=== PATIENT | male | born 1935 | race Caucasian/White ===

== ENCOUNTER → 2016-09-25 | Outpatient (REF) | payer MEDICARE, OTHER ==
[~2016-09-25] MED LIST: /TAMS4CA; ACET65TA OR; ADVIL PO; AMBI5TAB; AMLO5TAB OR; ASPI81TA45; ASPI81TA45 OR; ASTELIN NASAL SPRAY; AVOD0.5C; BISA5TA; CADUET PO; COLA100C2; COLA100C2 OR; HYDR25TA6; HYDROCORTISONE0.5 %; LIPI10TA OR; LUMIGAN 0.03%; MAALSUS; NEUR100C; NEUR300C; PERC5TAB8; PERC5TAB8 OR; PERC7.5T8 OR; PRESERVISION EYE VIT PO; RANI150C; SKEL800T5; TERA10CA; TIMO0.5S; TIMOLOL; TIMOLOL 0.5% OU; TYLENOL PO; hydrochlorothiazide PO; metamucil; ocuvite; preservision
== END | disposition home or self-care (01) ==
LOC: M LAB REF 12:11
PROVIDERS: ATTEND Internal Medicine
DX: N18.4 Chronic kidney disease, stage 4 (severe) (principal)

== ENCOUNTER → 2016-12-22 | Outpatient (CLI) | payer MEDICARE, OTHER ==
--- NOTE | 2016-12-22 12:05 | REP ---
Clinical: Shortness of breath. Technique: PA and lateral. Comparison: 12/09/2015. Findings: Cardiomegaly and tortuous thoracic aorta noted. Chronic interstitial changes and fibrosis (right greater than left) again identified. Superimposed right lower lobe atelectasis/infiltrate cannot be excluded. No pneumothorax. Skeletal structures intact. Impression: Chronic fibrosis and interstitial changes. Cannot exclude subtle superimposed right lower lobe atelectasis/infiltrate. Signed by Reuben Dumas MD 12/22/2016 11:56 A
== END ==
LOC: M WUC 11:40
PROVIDERS: ATTEND Nurse Practitioner Family
DX: R06.02 Shortness of breath (principal); R05 Cough; J98.4 Other disorders of lung

== ENCOUNTER → 2017-02-05 | Outpatient (REF) | payer MEDICARE, OTHER ==
[2017-02-05 19:02] LABS: FOLATE 8.8 NG/ML
== END ==
LOC: M LAB REF 16:25
PROVIDERS: ATTEND Internal Medicine
DX: N18.4 Chronic kidney disease, stage 4 (severe) (principal); R53.83 Other fatigue; F03.90 Unspecified dementia, unspecified severity, without behavioral disturbance, psychotic disturbance, mood disturbance, and anxiety

== ENCOUNTER → 2017-08-16 | Outpatient (REF) | payer MEDICARE, BC ==
[2017-08-16 13:32] LABS: PTH INTACT 98.2 PG/ML (14.0-72.0)
== END ==
LOC: M LAB REF 12:16
DX: N18.4 Chronic kidney disease, stage 4 (severe) (principal)
CPT/HCPCS: 83970

== ENCOUNTER → 2017-09-28 | Outpatient (REF) | payer MEDICARE, BC ==
[2017-09-28 18:30] LABS: APPEARANCE, URINE CLEAR (CLEAR); BACTERIA, URINE AUTO NEGATIVE (NEGATIVE); BILIRUBIN, URINE AUTO NEGATIVE (NEGATIVE); BLOOD, URINE BLOOD NEGATIVE (NEGATIVE); COLOR, URINE YELLOW (YELLOW); GLUCOSE, URINE (UA) AUTO NEGATIVE (NEGATIVE); KETONE, URINE AUTO NEGATIVE (NEGATIVE); LEUKOCYTE ESTERASE, URINE AUTO NEGATIVE (NEGATIVE); MUCUS, URINE SMALL (NEGATIVE); NITRITE, URINE AUTO NEGATIVE (NEGATIVE); PROTEIN, URINE AUTO NEGATIVE (NEGATIVE); RBC, URINE AUTO 2 /HPF (0-3); SPECIFIC GRAVITY URINE AUTO 1.013 (1.002-1.035); SQUAMOUS EPITHELIAL CELL UR AU 0 /HPF (0-6); WBC, URINE AUTO 1 /HPF (0-3)
== END ==
LOC: M LAB REF 16:38
DX: Z01.812 Encounter for preprocedural laboratory examination (principal); N40.1 Benign prostatic hyperplasia with lower urinary tract symptoms; R39.12 Poor urinary stream
CPT/HCPCS: 81001

== ENCOUNTER 2017-10-13 08:04 | Emergency (ER) | payer MEDICARE, BC ==
[2017-10-13 08:52] LABS: BASO % 0.4 % (0.0-1.0); EOS # 0.2 10^3/uL (0.0-0.50); EOS % 2.8 % (0.0-3.0); HEMATOCRIT 41.7 % (42.0-52.0); HEMOGLOBIN 14.2 g/dl (14.0-18.0); IMMATURE GRANULOCYTE % 0.5 % (0-3.0); LYMPH # 0.7 10^3/uL (1.5-4.5); LYMPH % 9.1 % (24.0-44.0); MEAN CORPUSCULAR HEMOGLOBIN 34.8 pg (27.0-33.0); MEAN CORPUSCULAR HGB CONC 34.1 g/dl (32.0-36.5); MEAN CORPUSCULAR VOLUME 102.2 fl (80.0-96.0); MONO # 0.5 10^3/uL (0.0-0.8); MONO % 6.8 % (0.0-5.0); NEUTROPHILS # 6.3 10^3/uL (1.8-7.7); NEUTROPHILS % 80.4 % (36.0-66.0); PLATELET COUNT, AUTOMATED 141 10^3/uL (150-450); RED BLOOD COUNT 4.08 10^6/uL (4.30-6.10); RED CELL DISTRIBUTION WIDTH 13.2 % (11.5-14.5); WHITE BLOOD COUNT 7.8 10^3/uL (4.0-10.0)
[2017-10-13 09:13] LABS: ANION GAP 9 MEQ/L (8-16); BLOOD UREA NITROGEN 23 MG/DL (7-18); CARBON DIOXIDE LEVEL 24 MEQ/L (21-32); CHLORIDE LEVEL 110 MEQ/L (98-107); CREATININE FOR GFR 1.84 MG/DL (0.70-1.30); GLOMERULAR FILTRATION RATE 37.6 (>35); GLUCOSE, FASTING 114 MG/DL (70-100); SODIUM LEVEL 143 MEQ/L (136-145)
[2017-10-13 10:11] LABS: APPEARANCE, URINE MANUAL CLEAR (CLEAR); BILIRUBIN, URINE MANUAL NEGATIVE (NEGATIVE); BLOOD URINE MANUAL POSITIVE (NEGATIVE); COLOR, URINE MANUAL LT YELLOW (YELLOW); GLUCOSE, URINE (UA) MANUAL NEGATIVE (NEGATIVE); KETONE, URINE MANUAL NEGATIVE (NEGATIVE); LEUKOCYTE ESTERASE, URINE MAN POSITIVE (NEGATIVE); NITRITE, URINE MANUAL NEGATIVE (NEGATIVE); PH,URINE MAN 5.5 UNITS (5.0 - 7.0); PROTEIN, URINE MANUAL 3+ mg/dL (NEGATIVE); UROBILINOGEN, URINE MANUAL NORMAL (NORMAL)
[2017-10-13 10:19] LABS: BACTERIA, URINE SMALL AMOUNT; HYALINE CAST, URINE NONE SEEN /lpf (0-1); MICROSCOPIC EXAM PERFORMED; MUCUS, URINE SMALL AMOUNT (NEGATIVE); RENAL EPITHELIAL CELLS, URINE SMALL AMOUNT /hpf; SQUAMOUS EPITHELIAL CELL URINE SMALL AMOUNT /hpf (SMALL AMT)
[2017-10-13] MEDS: PERCOCET 5MG/325MG TAB PO (10:34)
[2017-10-13 11:10] LABS: MICROSCOPIC INDICATED? MAN YES (NO)
[2017-10-13] MEDS: PHENAZOPYRIDINE 100 MG TAB PO (11:15)
== END 2017-10-13 11:39 | disposition home or self-care (01) ==
LOC: M ED 08:04
DX: R30.0 Dysuria (principal); G89.18 Other acute postprocedural pain; I10 Essential (primary) hypertension; R06.09 Other forms of dyspnea; G47.30 Sleep apnea, unspecified; H40.9 Unspecified glaucoma; M48.00 Spinal stenosis, site unspecified; Z87.891 Personal history of nicotine dependence; Z88.0 Allergy status to penicillin; Z79.899 Other long term (current) drug therapy; Z79.82 Long term (current) use of aspirin
CPT/HCPCS: 80048

== ENCOUNTER 2017-10-15 10:27 | Inpatient (IN) | payer MEDICARE, BC ==
[2017-10-15] MEDS: LIDOCAINE 2% 5ML JELLY UROJET TOP (11:45)
[2017-10-15 12:05] LABS: BASO % 0.2 % (0.0-1.0); EOS # 0.1 10^3/uL (0.0-0.50); EOS % 1.1 % (0.0-3.0); HEMATOCRIT 40.6 % (42.0-52.0); HEMOGLOBIN 13.8 g/dl (14.0-18.0); IMMATURE GRANULOCYTE % 0.6 % (0-3.0); LYMPH # 0.8 10^3/uL (1.5-4.5); LYMPH % 6.1 % (24.0-44.0); MEAN CORPUSCULAR HEMOGLOBIN 34.8 pg (27.0-33.0); MEAN CORPUSCULAR VOLUME 102.5 fl (80.0-96.0); MONO # 1.2 10^3/uL (0.0-0.8); MONO % 8.9 % (0.0-5.0); NEUTROPHILS # 10.9 10^3/uL (1.8-7.7); NEUTROPHILS % 83.1 % (36.0-66.0); PLATELET COUNT, AUTOMATED 162 10^3/uL (150-450); RED BLOOD COUNT 3.96 10^6/uL (4.30-6.10); RED CELL DISTRIBUTION WIDTH 13.6 % (11.5-14.5); WHITE BLOOD COUNT 13.1 10^3/uL (4.0-10.0)
[2017-10-15 12:24] LABS: ANION GAP 9 MEQ/L (8-16); BLOOD UREA NITROGEN 42 MG/DL (7-18); CALCIUM LEVEL 9.9 MG/DL (8.8-10.2); CARBON DIOXIDE LEVEL 24 MEQ/L (21-32); CHLORIDE LEVEL 105 MEQ/L (98-107); CREATININE FOR GFR 3.85 MG/DL (0.70-1.30); GLUCOSE, FASTING 110 MG/DL (70-100); POTASSIUM SERUM 4.3 MEQ/L (3.5-5.1); SODIUM LEVEL 138 MEQ/L (136-145)
[2017-10-15 15:29] LABS: ANION GAP 8 MEQ/L (8-16); BLOOD UREA NITROGEN 43 MG/DL (7-18); CALCIUM LEVEL 9.4 MG/DL (8.8-10.2); CARBON DIOXIDE LEVEL 26 MEQ/L (21-32); CHLORIDE LEVEL 106 MEQ/L (98-107); CREATININE FOR GFR 3.67 MG/DL (0.70-1.30); GLOMERULAR FILTRATION RATE 16.9 (>35); GLUCOSE, FASTING 127 MG/DL (70-100); POTASSIUM SERUM 4.6 MEQ/L (3.5-5.1); SODIUM LEVEL 140 MEQ/L (136-145)
[2017-10-15] MEDS ORDERED: ONDANSETRON 4MG/2ML VIAL (J2405) IV (16:15)
[2017-10-15] MEDS: NS 1,000 ML IV (16:30)
[2017-10-15] MEDS ORDERED: AZELASTINE 137MCG NASAL SPY 30 ML (ASTELIN) (18:45)
[2017-10-15] MEDS ORDERED: BISACODYL 5 MG TAB PO (18:45)
[2017-10-15] MEDS ORDERED: ACETAMINOPHEN TAB 650MG DOSE (2X325MG) PO (18:45)
[2017-10-15] MEDS: OCUVITE 1 TAB PO (20:28)
[2017-10-15] MEDS: DONEPEZIL 5 MG TAB PO (20:28)
[2017-10-15] MEDS: VITAMIN D 1,000 INTERNATIONAL UNITS TABLET PO (20:28)
[2017-10-15] MEDS: FAMOTIDINE 20 MG TAB PO (20:28)
[2017-10-15] MEDS: ASPIRIN 81 MG ENTERIC TAB PO (20:28)
[2017-10-15] MEDS: MEMANTINE 5MG TABLET (NAMENDA) PO (20:28)
[2017-10-15] MEDS: LATANOPROST 0.005% OPHTH SOLN 2.5 ML OU (21:00)
[2017-10-15 21:53] LABS: OSMOLALITY URINE 234 MOSM/KG (500-800)
[2017-10-15 21:58] LABS: APPEARANCE, URINE CLEAR (CLEAR); BACTERIA, URINE AUTO 1+ (NEGATIVE); BILIRUBIN, URINE AUTO NEGATIVE (NEGATIVE); BLOOD, URINE BLOOD 2+ (NEGATIVE); COLOR, URINE AMBER (YELLOW); GLUCOSE, URINE (UA) AUTO NEGATIVE (NEGATIVE); KETONE, URINE AUTO NEGATIVE (NEGATIVE); LEUKOCYTE ESTERASE, URINE AUTO 1+ (NEGATIVE); NITRITE, URINE AUTO POSITIVE (NEGATIVE); PROTEIN, URINE AUTO 2+ mg/dL (NEGATIVE); RBC, URINE AUTO 16 /HPF (0-3); SPECIFIC GRAVITY URINE AUTO 1.006 (1.002-1.035); SQUAMOUS EPITHELIAL CELL UR AU 0 /HPF (0-6); WBC, URINE AUTO 8 /HPF (0-3)
[2017-10-15 22:03] LABS: SODIUM,RANDOM URINE 24 MEQ/L
[2017-10-16 05:49] LABS: BASO # 0.1 10^3/uL (0.0-0.2); BASO % 0.6 % (0.0-1.0); EOS # 0.5 10^3/uL (0.0-0.50); EOS % 6.1 % (0.0-3.0); HEMATOCRIT 37.4 % (42.0-52.0); HEMOGLOBIN 12.3 g/dl (14.0-18.0); IMMATURE GRANULOCYTE % 0.2 % (0-3.0); LYMPH # 1.2 10^3/uL (1.5-4.5); LYMPH % 14.1 % (24.0-44.0); MEAN CORPUSCULAR HEMOGLOBIN 34.6 pg (27.0-33.0); MEAN CORPUSCULAR HGB CONC 32.9 g/dl (32.0-36.5); MEAN CORPUSCULAR VOLUME 105.4 fl (80.0-96.0); MONO # 0.8 10^3/uL (0.0-0.8); MONO % 9.4 % (0.0-5.0); NEUTROPHILS # 5.7 10^3/uL (1.8-7.7); NEUTROPHILS % 69.6 % (36.0-66.0); PLATELET COUNT, AUTOMATED 124 10^3/uL (150-450); RED BLOOD COUNT 3.55 10^6/uL (4.30-6.10); RED CELL DISTRIBUTION WIDTH 13.5 % (11.5-14.5); WHITE BLOOD COUNT 8.2 10^3/uL (4.0-10.0)
[2017-10-16 06:07] LABS: ANION GAP 7 MEQ/L (8-16); BLOOD UREA NITROGEN 43 MG/DL (7-18); CALCIUM LEVEL 9.2 MG/DL (8.8-10.2); CARBON DIOXIDE LEVEL 27 MEQ/L (21-32); CHLORIDE LEVEL 108 MEQ/L (98-107); CREATININE FOR GFR 3.13 MG/DL (0.70-1.30); GLOMERULAR FILTRATION RATE 20.4 (>35); GLUCOSE, FASTING 90 MG/DL (70-100); MAGNESIUM LEVEL 2.4 MG/DL (1.8-2.4); POTASSIUM SERUM 4.2 MEQ/L (3.5-5.1); SODIUM LEVEL 142 MEQ/L (136-145)
[2017-10-16] MEDS: TIMOLOL MALEATE 0.5% OPHTH SOLN 5 ML OD (08:53)
[2017-10-16] MEDS: HEPARIN SOD (PORCINE) 5000 UNITS/ML VIAL SQ ×3 (08:53→20:51)
[2017-10-16] MEDS: DUTASTERIDE 0.5 MG CAP (AVODART) PO (08:54)
[2017-10-16] MEDS: OCUVITE 1 TAB PO ×2 (08:54→20:50)
[2017-10-16] MEDS: TAMSULOSIN 0.4 MG CAP PO (08:54)
[2017-10-16] MEDS ORDERED: ENOXAPARIN 30 MG/0.3 ML SYR (J1650) SC (09:00)
[2017-10-16] MEDS: VITAMIN D 1,000 INTERNATIONAL UNITS TABLET PO (20:50)
[2017-10-16] MEDS: DONEPEZIL 5 MG TAB PO (20:50)
[2017-10-16] MEDS: LATANOPROST 0.005% OPHTH SOLN 2.5 ML OU (20:50)
[2017-10-16] MEDS: FAMOTIDINE 20 MG TAB PO (20:50)
[2017-10-16] MEDS: MEMANTINE 5MG TABLET (NAMENDA) PO (20:50)
[2017-10-16] MEDS: ASPIRIN 81 MG ENTERIC TAB PO (20:50)
[2017-10-17 05:35] LABS: BASO % 0.6 % (0.0-1.0); EOS # 0.5 10^3/uL (0.0-0.50); HEMATOCRIT 35.6 % (42.0-52.0); HEMOGLOBIN 11.8 g/dl (14.0-18.0); IMMATURE GRANULOCYTE % 0.2 % (0-3.0); LYMPH # 1.2 10^3/uL (1.5-4.5); LYMPH % 18.3 % (24.0-44.0); MEAN CORPUSCULAR HEMOGLOBIN 34.7 pg (27.0-33.0); MEAN CORPUSCULAR HGB CONC 33.1 g/dl (32.0-36.5); MEAN CORPUSCULAR VOLUME 104.7 fl (80.0-96.0); MONO # 0.6 10^3/uL (0.0-0.8); MONO % 8.7 % (0.0-5.0); NEUTROPHILS # 4.1 10^3/uL (1.8-7.7); NEUTROPHILS % 64.2 % (36.0-66.0); PLATELET COUNT, AUTOMATED 122 10^3/uL (150-450); RED CELL DISTRIBUTION WIDTH 13.5 % (11.5-14.5); WHITE BLOOD COUNT 6.3 10^3/uL (4.0-10.0)
[2017-10-17] MEDS: HEPARIN SOD (PORCINE) 5000 UNITS/ML VIAL SQ ×3 (05:35→19:37)
[2017-10-17 05:58] LABS: ANION GAP 7 MEQ/L (8-16); BLOOD UREA NITROGEN 44 MG/DL (7-18); CALCIUM LEVEL 9.1 MG/DL (8.8-10.2); CARBON DIOXIDE LEVEL 24 MEQ/L (21-32); CHLORIDE LEVEL 109 MEQ/L (98-107); CREATININE FOR GFR 2.58 MG/DL (0.70-1.30); GLOMERULAR FILTRATION RATE 25.4 (>35); GLUCOSE, FASTING 85 MG/DL (70-100); MAGNESIUM LEVEL 2.2 MG/DL (1.8-2.4); SODIUM LEVEL 140 MEQ/L (136-145)
[2017-10-17] MEDS: TIMOLOL MALEATE 0.5% OPHTH SOLN 5 ML OD (08:32)
[2017-10-17] MEDS: OCUVITE 1 TAB PO ×2 (08:32→19:35)
[2017-10-17] MEDS: TAMSULOSIN 0.4 MG CAP PO (08:32)
[2017-10-17] MEDS: DUTASTERIDE 0.5 MG CAP (AVODART) PO (08:32)
[2017-10-17] MEDS: SENNA 8.6 MG TAB (SENOKOT) PO ×2 (11:53→19:36)
[2017-10-17] MEDS: FLEET ENEMA PR (13:31)
[2017-10-17] MEDS: ASPIRIN 81 MG ENTERIC TAB PO (19:35)
[2017-10-17] MEDS: FAMOTIDINE 20 MG TAB PO (19:36)
[2017-10-17] MEDS: MEMANTINE 5MG TABLET (NAMENDA) PO (19:36)
[2017-10-17] MEDS: DONEPEZIL 5 MG TAB PO (19:36)
[2017-10-17] MEDS: VITAMIN D 1,000 INTERNATIONAL UNITS TABLET PO (19:36)
[2017-10-17] MEDS: LATANOPROST 0.005% OPHTH SOLN 2.5 ML OU (19:36)
[2017-10-18] MEDS: HEPARIN SOD (PORCINE) 5000 UNITS/ML VIAL SQ (05:19)
[2017-10-18 06:46] LABS: BASO % 0.6 % (0.0-1.0); EOS # 0.5 10^3/uL (0.0-0.50); EOS % 7.6 % (0.0-3.0); HEMOGLOBIN 12.5 g/dl (14.0-18.0); IMMATURE GRANULOCYTE % 0.1 % (0-3.0); LYMPH # 1.1 10^3/uL (1.5-4.5); LYMPH % 16.9 % (24.0-44.0); MEAN CORPUSCULAR HEMOGLOBIN 34.5 pg (27.0-33.0); MEAN CORPUSCULAR HGB CONC 32.9 g/dl (32.0-36.5); MONO # 0.6 10^3/uL (0.0-0.8); MONO % 8.4 % (0.0-5.0); NEUTROPHILS # 4.4 10^3/uL (1.8-7.7); NEUTROPHILS % 66.4 % (36.0-66.0); PLATELET COUNT, AUTOMATED 148 10^3/uL (150-450); RED BLOOD COUNT 3.62 10^6/uL (4.30-6.10); RED CELL DISTRIBUTION WIDTH 13.3 % (11.5-14.5); WHITE BLOOD COUNT 6.7 10^3/uL (4.0-10.0)
[2017-10-18 07:12] LABS: ANION GAP 8 MEQ/L (8-16); BLOOD UREA NITROGEN 38 MG/DL (7-18); CALCIUM LEVEL 9.3 MG/DL (8.8-10.2); CARBON DIOXIDE LEVEL 26 MEQ/L (21-32); CHLORIDE LEVEL 108 MEQ/L (98-107); CREATININE FOR GFR 2.29 MG/DL (0.70-1.30); GLOMERULAR FILTRATION RATE 29.2 (>35); GLUCOSE, FASTING 83 MG/DL (70-100); MAGNESIUM LEVEL 2.3 MG/DL (1.8-2.4); SODIUM LEVEL 142 MEQ/L (136-145)
[2017-10-18] MEDS: SENNA 8.6 MG TAB (SENOKOT) PO (09:00)
[2017-10-18] MEDS: OCUVITE 1 TAB PO (09:45)
[2017-10-18] MEDS: DUTASTERIDE 0.5 MG CAP (AVODART) PO (09:45)
[2017-10-18] MEDS: TIMOLOL MALEATE 0.5% OPHTH SOLN 5 ML OD (09:46)
[2017-10-18] MEDS: TAMSULOSIN 0.4 MG CAP PO (09:46)
== END 2017-10-18 14:45 | disposition home or self-care (01) | DRG 699 ==
LOC: M ED 10:27 → M ED INP 16:08 → M MS5PR 17:41
DX: N99.89 Other postprocedural complications and disorders of genitourinary system (principal); N17.9 Acute kidney failure, unspecified; N18.3 Chronic kidney disease, stage 3 (moderate); R33.9 Retention of urine, unspecified; G89.18 Other acute postprocedural pain; I10 Essential (primary) hypertension; R06.09 Other forms of dyspnea; G47.30 Sleep apnea, unspecified; H40.9 Unspecified glaucoma; K59.00 Constipation, unspecified; Z66 Do not resuscitate; R31.9 Hematuria, unspecified; K21.9 Gastro-esophageal reflux disease without esophagitis; M48.00 Spinal stenosis, site unspecified; N40.1 Benign prostatic hyperplasia with lower urinary tract symptoms; E78.00 Pure hypercholesterolemia, unspecified; D72.829 Elevated white blood cell count, unspecified; H35.30 Unspecified macular degeneration; F03.90 Unspecified dementia, unspecified severity, without behavioral disturbance, psychotic disturbance, mood disturbance, and anxiety; D53.9 Nutritional anemia, unspecified; Z87.891 Personal history of nicotine dependence; Z88.0 Allergy status to penicillin; Z79.899 Other long term (current) drug therapy; Z79.82 Long term (current) use of aspirin; Z88.6 Allergy status to analgesic agent; Z88.8 Allergy status to other drugs, medicaments and biological substances; Z85.828 Personal history of other malignant neoplasm of skin; Y83.8 Other surgical procedures as the cause of abnormal reaction of the patient, or of later complication, without mention of misadventure at the time of the procedure

== ENCOUNTER 2017-11-03 19:48 | Emergency (ER) | payer MEDICARE, BC ==
[2017-11-03 21:46] LABS: APPEARANCE, URINE CLEAR (CLEAR); BACTERIA, URINE AUTO 1+ (NEGATIVE); BILIRUBIN, URINE AUTO NEGATIVE (NEGATIVE); BLOOD, URINE BLOOD 1+ (NEGATIVE); COLOR, URINE YELLOW (YELLOW); GLUCOSE, URINE (UA) AUTO NEGATIVE (NEGATIVE); KETONE, URINE AUTO NEGATIVE (NEGATIVE); LEUKOCYTE ESTERASE, URINE AUTO 3+ (NEGATIVE); NITRITE, URINE AUTO NEGATIVE (NEGATIVE); PROTEIN, URINE AUTO NEGATIVE (NEGATIVE); RBC, URINE AUTO 8 /HPF (0-3); SPECIFIC GRAVITY URINE AUTO 1.006 (1.002-1.035); SQUAMOUS EPITHELIAL CELL UR AU 0 /HPF (0-6); UROBILINOGEN, URINE AUTO 0.2 mg/dL (0.0-2.0); WBC, URINE AUTO 36 /HPF (0-3)
[2017-11-03] MEDS: CIPROFLOXACIN 500 MG TAB PO (22:11)
== END 2017-11-03 22:13 | disposition home or self-care (01) ==
LOC: M ED 19:48
DX: T83.098A Other mechanical complication of other urinary catheter, initial encounter (principal); N30.90 Cystitis, unspecified without hematuria; I10 Essential (primary) hypertension; F03.90 Unspecified dementia, unspecified severity, without behavioral disturbance, psychotic disturbance, mood disturbance, and anxiety; K21.9 Gastro-esophageal reflux disease without esophagitis; E78.9 Disorder of lipoprotein metabolism, unspecified; H40.9 Unspecified glaucoma; G47.33 Obstructive sleep apnea (adult) (pediatric); Z79.899 Other long term (current) drug therapy; Z79.82 Long term (current) use of aspirin; Z88.0 Allergy status to penicillin; Z88.8 Allergy status to other drugs, medicaments and biological substances
CPT/HCPCS: 81001

== ENCOUNTER → 2017-12-08 | Outpatient (REF) | payer MEDICARE, BC ==
[2017-12-08 13:22] LABS: PTH INTACT 154.9 PG/ML (18.5-88.0)
== END ==
LOC: M LAB REF 12:31
DX: F32.9 Major depressive disorder, single episode, unspecified (principal); E55.9 Vitamin D deficiency, unspecified; R31.29 Other microscopic hematuria
CPT/HCPCS: 83970

== ENCOUNTER 2018-01-04 09:02 | Day surgery (SDC) | payer MEDICARE, BC ==
[~2018-01-04 09:02] MED LIST changes: -/TAMS4CA; -ACET65TA OR; -ADVIL PO; -AMBI5TAB; -AMLO5TAB OR; -ASPI81TA45; -ASPI81TA45 OR; -ASTELIN NASAL SPRAY; -AVOD0.5C; -BISA5TA; -CADUET PO; -COLA100C2; -COLA100C2 OR; -HYDR25TA6; -HYDROCORTISONE0.5 %; -LIPI10TA OR; +LR 1,000 ML IV; -LUMIGAN 0.03%; -MAALSUS; -NEUR100C; -NEUR300C; -PERC5TAB8; -PERC5TAB8 OR; -PERC7.5T8 OR; -PRESERVISION EYE VIT PO; -RANI150C; -SKEL800T5; -TERA10CA; -TIMO0.5S; -TIMOLOL; -TIMOLOL 0.5% OU; -TYLENOL PO; -hydrochlorothiazide PO; -metamucil; -ocuvite; -preservision
[2018-01-04] MEDS ORDERED: fentaNYL 100 MCG/2 ML INJECTION (J3010) As Ordered ×2 (11:08→14:39)
[2018-01-04] MEDS ORDERED: ROCURONIUM BROMIDE 50 MG/5 ML VIAL As Ordered ×2 (11:08→13:26)
[2018-01-04] MEDS ORDERED: PROPOFOL 200 MG/20 ML VIAL As Ordered (11:08)
[2018-01-04] MEDS: LevoFLOXacin IV 500 MG in APPROPRIATE DILUENT 1 EA IV (11:58)
[2018-01-04] MEDS ORDERED: GLYCOPYRROLATE INJ 0.2 MG/ML 2 ML VIAL As Ordered (14:05)
[2018-01-04] MEDS ORDERED: NEOSTIGMINE 10 MG/10 ML VIAL (J2710) As Ordered (14:05)
[2018-01-04] MEDS ORDERED: ONDANSETRON 4MG/2ML VIAL (J2405) As Ordered (14:05)
[2018-01-04] MEDS: BUPIVACAINE/EPIN 0.5% 30 ML VIAL As Ordered (14:16)
[2018-01-04] MEDS ORDERED: METOCLOPRAMIDE INJ 10MG/2ML VIAL (J2765) IV (14:45)
[2018-01-04] MEDS ORDERED: PERCOCET 5MG/325MG TAB PO (14:45)
[2018-01-04] MEDS ORDERED: MORPHINE 4 MG/ML 1ML VIAL/SYRINGE (J2270) IV (14:45)
[2018-01-04] MEDS ORDERED: ONDANSETRON 4MG/2ML VIAL (J2405) IV ×2 (14:45)
[2018-01-04] MEDS ORDERED: fentaNYL 100 MCG/2 ML INJECTION (J3010) IV (14:45)
[2018-01-04] MEDS ORDERED: LR 1,000 ML IV ×2 (14:45)
[2018-01-04] MEDS: NORCO, ANEXSIA 5/325MG TABLET (HYDROcodone/ACETAMINOPHEN) PO (17:00)
== END 2018-01-04 19:00 | disposition home or self-care (01) ==
LOC: M SDC 09:02
DX: K40.90 Unilateral inguinal hernia, without obstruction or gangrene, not specified as recurrent (principal); G47.30 Sleep apnea, unspecified; Z79.82 Long term (current) use of aspirin; N40.0 Benign prostatic hyperplasia without lower urinary tract symptoms; Z87.891 Personal history of nicotine dependence; Z79.899 Other long term (current) drug therapy; Z88.8 Allergy status to other drugs, medicaments and biological substances
CPT/HCPCS: 49650

== ENCOUNTER 2018-03-10 21:31 | Inpatient (IN) | payer MEDICARE, BC ==
[2018-03-10 22:26] LABS: BASO % 0.3 % (0.0-1.0); EOS # 0.2 10^3/uL (0.0-0.50); EOS % 3.8 % (0.0-3.0); HEMATOCRIT 37.9 % (42.0-52.0); HEMOGLOBIN 12.8 g/dl (13.5-17.5); IMMATURE GRANULOCYTE % 0.2 % (0-3.0); LYMPH % 16.6 % (24.0-44.0); MEAN CORPUSCULAR HEMOGLOBIN 35.6 pg (27.0-33.0); MEAN CORPUSCULAR HGB CONC 33.8 g/dl (32.0-36.5); MEAN CORPUSCULAR VOLUME 105.3 fl (80.0-96.0); MONO # 0.6 10^3/uL (0.0-0.8); MONO % 10.2 % (0.0-5.0); NEUTROPHILS % 68.9 % (36.0-66.0); RED CELL DISTRIBUTION WIDTH 13.7 % (11.5-14.5); WHITE BLOOD COUNT 5.8 10^3/uL (4.0-10.0)
[2018-03-10 22:40] LABS: PLATELET COUNT, AUTOMATED 92 10^3/uL (150-450)
[2018-03-10 22:47] LABS: ACETAMINOPHEN LEVEL < 2.0 UG/ML (10.0-30.0); ALBUMIN 2.7 GM/DL (3.2-5.2); ALBUMIN/GLOBULIN RATIO 0.87 (1.00-1.93); ALKALINE PHOSPHATASE 68 U/L (45-117); ALT/SGPT 19 U/L (12-78); ANION GAP 9 MEQ/L (8-16); AST/SGOT 20 U/L (7-37); BILIRUBIN,DIRECT 0.3 MG/DL (0.0-0.2); BILIRUBIN,TOTAL 0.7 MG/DL (0.2-1.0); BLOOD UREA NITROGEN 43 MG/DL (7-18); CALCIUM LEVEL 8.4 MG/DL (8.8-10.2); CARBON DIOXIDE LEVEL 26 MEQ/L (21-32); CHLORIDE LEVEL 105 MEQ/L (98-107); CPK CREATINE PHOSPHOKINASE 49 U/L (39-308); CREATININE FOR GFR 2.17 MG/DL (0.70-1.30); GLUCOSE, FASTING 95 MG/DL (70-100); POTASSIUM SERUM 3.6 MEQ/L (3.5-5.1); SALICYLATE LEVEL < 1.7 MG/DL (5.0-30.0); SODIUM LEVEL 140 MEQ/L (136-145); TOTAL PROTEIN 5.8 GM/DL (6.4-8.2)
[2018-03-10 22:52] LABS: CK-MB VALUE MASS 4.6 NG/ML (<3.6); MB/CK RELATIVE INDEX 9.38 (< OR =4)
[2018-03-10 23:01] LABS: ETHYL ALCOHOL (ETHANOL) < 0.003 % (0.000-0.010); TROPONIN I 1.67 NG/ML (< 0.10)
[2018-03-11] MEDS ORDERED: BISACODYL 10 MG SUPP PR (00:45)
[2018-03-11] MEDS ORDERED: ONDANSETRON 4 MG TAB (S0181) PO (00:45)
[2018-03-11] MEDS ORDERED: ACETAMINOPHEN TAB 650MG DOSE (2X325MG) PO (00:45)
[2018-03-11 01:44] LABS: AMPHETAMINES LEVEL URINE NEGATIVE (NEGATIVE); BARBITURATES URINE NEGATIVE (NEGATIVE); BENZODIAZEPINES URINE NEGATIVE (NEGATIVE); CANNABINOIDS URINE NEGATIVE (NEGATIVE); COCAINE METABOLITE URINE NEGATIVE (NEGATIVE); METHADONE URINE NEGATIVE (NEGATIVE); OPIATES URINE NEGATIVE (NEGATIVE); PHENCYCLIDINE URINE NEGATIVE (NEGATIVE)
[2018-03-11 01:47] LABS: TROPONIN I 1.52 NG/ML (< 0.10)
[2018-03-11] MEDS: APIXABAN 2.5 MG TAB (ELIQUIS) PO ×3 (03:00→20:20)
[2018-03-11] MEDS: NS 1,000 ML IV (03:01)
[2018-03-11 06:10] LABS: ESTIMATED AVERAGE GLUCOSE 117 MG/DL (60-110); HEMOGLOBIN A1c 5.7 %
[2018-03-11 06:11] LABS: ALBUMIN 2.8 GM/DL (3.2-5.2); ALKALINE PHOSPHATASE 68 U/L (45-117); ALT/SGPT 18 U/L (12-78); ANION GAP 8 MEQ/L (8-16); AST/SGOT 20 U/L (7-37); BILIRUBIN,TOTAL 0.7 MG/DL (0.2-1.0); BLOOD UREA NITROGEN 43 MG/DL (7-18); CALCIUM LEVEL 9.2 MG/DL (8.8-10.2); CARBON DIOXIDE LEVEL 29 MEQ/L (21-32); CHLORIDE LEVEL 104 MEQ/L (98-107); CPK CREATINE PHOSPHOKINASE 45 U/L (39-308); CREATININE FOR GFR 2.18 MG/DL (0.70-1.30); GLOMERULAR FILTRATION RATE 30.8 (>35); GLUCOSE, FASTING 87 MG/DL (70-100); POTASSIUM SERUM 4.1 MEQ/L (3.5-5.1); SODIUM LEVEL 141 MEQ/L (136-145); TOTAL PROTEIN 5.9 GM/DL (6.4-8.2)
[2018-03-11 06:16] LABS: CK-MB VALUE MASS 5.9 NG/ML (<3.6); MB/CK RELATIVE INDEX 13.11 (< OR =4)
[2018-03-11 06:17] LABS: TROPONIN I 1.61 NG/ML (< 0.10)
[2018-03-11 10:52] LABS: APPEARANCE, URINE HAZY (CLEAR); BACTERIA, URINE AUTO NEGATIVE (NEGATIVE); BILIRUBIN, URINE AUTO NEGATIVE (NEGATIVE); BLOOD, URINE BLOOD 1+ (NEGATIVE); COLOR, URINE YELLOW (YELLOW); GLUCOSE, URINE (UA) AUTO NEGATIVE (NEGATIVE); KETONE, URINE AUTO NEGATIVE (NEGATIVE); LEUKOCYTE ESTERASE, URINE AUTO 3+ (NEGATIVE); MUCUS, URINE SMALL (NEGATIVE); NITRITE, URINE AUTO NEGATIVE (NEGATIVE); PROTEIN, URINE AUTO NEGATIVE (NEGATIVE); RBC, URINE AUTO 2 /HPF (0-3); SPECIFIC GRAVITY URINE AUTO 1.008 (1.002-1.035); SQUAMOUS EPITHELIAL CELL UR AU 0 /HPF (0-6); UROBILINOGEN, URINE AUTO 0.2 mg/dL (0.0-2.0); WBC, URINE AUTO 43 /HPF (0-3)
[2018-03-11] MEDS: DUTASTERIDE 0.5 MG CAP (AVODART) PO (12:44)
[2018-03-11] MEDS ORDERED: SLF 3 ML SYR IV (12:45)
[2018-03-11] MEDS: SLF 3 ML SYR IV ×2 (13:35→22:52)
[2018-03-11] MEDS: DONEPEZIL 5 MG TAB PO (20:20)
[2018-03-11] MEDS: ASPIRIN 81 MG ENTERIC TAB PO (20:20)
[2018-03-11] MEDS: FAMOTIDINE 20 MG TAB PO (20:20)
[2018-03-11] MEDS: VITAMIN D 1,000 INTERNATIONAL UNITS TABLET PO (20:20)
[2018-03-11] MEDS: TAMSULOSIN 0.4 MG CAP PO (20:20)
[2018-03-11 20:25] LABS: CK-MB VALUE MASS 5.6 NG/ML (<3.6); CPK CREATINE PHOSPHOKINASE 80 U/L (39-308); MAGNESIUM LEVEL 2.2 MG/DL (1.8-2.4); TROPONIN I 1.47 NG/ML (< 0.10)
[2018-03-12 05:38] LABS: HEMATOCRIT 37.9 % (42.0-52.0); HEMOGLOBIN 12.5 g/dl (13.5-17.5); MEAN CORPUSCULAR VOLUME 106.2 fl (80.0-96.0); RED BLOOD COUNT 3.57 10^6/uL (4.30-6.10); RED CELL DISTRIBUTION WIDTH 13.4 % (11.5-14.5); WHITE BLOOD COUNT 6.5 10^3/uL (4.0-10.0)
[2018-03-12 05:40] LABS: PLATELET COUNT, AUTOMATED 91 10^3/uL (150-450)
[2018-03-12 05:42] LABS: IMMATURE PLATELET FRACTION % 5.2 % (0.0-10.9)
[2018-03-12] MEDS: SLF 3 ML SYR IV ×3 (05:50→20:48)
[2018-03-12 06:04] LABS: ANION GAP 6 MEQ/L (8-16); BLOOD UREA NITROGEN 40 MG/DL (7-18); C REACTIVE PROTEIN QUANTITATIV 1.88 MG/DL (0.00-0.30); CALCIUM LEVEL 8.9 MG/DL (8.8-10.2); CARBON DIOXIDE LEVEL 29 MEQ/L (21-32); CHLORIDE LEVEL 104 MEQ/L (98-107); CREATININE FOR GFR 2.03 MG/DL (0.70-1.30); FERRITIN 121 NG/ML (26-388); GLOMERULAR FILTRATION RATE 33.5 (>35); GLUCOSE, FASTING 81 MG/DL (70-100); IRON (FE) 33 UG/DL (65-175); MAGNESIUM LEVEL 2.2 MG/DL (1.8-2.4); PERCENT SATURATION 15.1 % (19.7-50.0); PHOSPHORUS LEVEL 3.8 MG/DL (2.5-4.9); POTASSIUM SERUM 3.5 MEQ/L (3.5-5.1); SODIUM LEVEL 139 MEQ/L (136-145); TOTAL IRON BINDING CAPACITY 218 UG/DL (250-450)
[2018-03-12 06:39] LABS: TROPONIN I 1.27 NG/ML (< 0.10)
[2018-03-12] MEDS: POTASSIUM CHLORIDE 10 MEQ SR TABLET PO (10:48)
[2018-03-12] MEDS: SPIRONOLACTONE 25 MG TAB PO (10:48)
[2018-03-12] MEDS: APIXABAN 2.5 MG TAB (ELIQUIS) PO ×2 (10:49→20:48)
[2018-03-12] MEDS: DUTASTERIDE 0.5 MG CAP (AVODART) PO (10:49)
[2018-03-12] MEDS: DONEPEZIL 5 MG TAB PO (20:48)
[2018-03-12] MEDS: VITAMIN D 1,000 INTERNATIONAL UNITS TABLET PO (20:48)
[2018-03-12] MEDS: ASPIRIN 81 MG ENTERIC TAB PO (20:48)
[2018-03-12] MEDS: FAMOTIDINE 20 MG TAB PO (20:48)
[2018-03-12] MEDS: TAMSULOSIN 0.4 MG CAP PO (20:48)
[2018-03-13] MEDS: SLF 3 ML SYR IV ×3 (05:08→20:08)
[2018-03-13 05:10] LABS: HEMATOCRIT 36.1 % (42.0-52.0); MEAN CORPUSCULAR HEMOGLOBIN 34.6 pg (27.0-33.0); MEAN CORPUSCULAR HGB CONC 33.2 g/dl (32.0-36.5); PLATELET COUNT, AUTOMATED 106 10^3/uL (150-450); RED BLOOD COUNT 3.47 10^6/uL (4.30-6.10); RED CELL DISTRIBUTION WIDTH 13.4 % (11.5-14.5); WHITE BLOOD COUNT 6.2 10^3/uL (4.0-10.0)
[2018-03-13 05:34] LABS: ANION GAP 6 MEQ/L (8-16); BLOOD UREA NITROGEN 35 MG/DL (7-18); CALCIUM LEVEL 9.4 MG/DL (8.8-10.2); CARBON DIOXIDE LEVEL 29 MEQ/L (21-32); CHLORIDE LEVEL 107 MEQ/L (98-107); CREATININE FOR GFR 1.83 MG/DL (0.70-1.30); GLOMERULAR FILTRATION RATE 37.7 (>35); GLUCOSE, FASTING 98 MG/DL (70-100); POTASSIUM SERUM 4.7 MEQ/L (3.5-5.1); SODIUM LEVEL 142 MEQ/L (136-145)
[2018-03-13] MEDS: FLUTICASONE PROP 0.05% NASAL SPRAY 16 GM (FLONASE) NARES (09:46)
[2018-03-13] MEDS: DUTASTERIDE 0.5 MG CAP (AVODART) PO (09:46)
[2018-03-13] MEDS: APIXABAN 2.5 MG TAB (ELIQUIS) PO ×2 (09:46→20:07)
[2018-03-13] MEDS: TORSEMIDE 20 MG TAB PO (11:55)
[2018-03-13] MEDS: SPIRONOLACTONE 25 MG TAB PO (11:55)
[2018-03-13 14:18] LABS: TROPONIN I 1.43 NG/ML (< 0.10)
[2018-03-13] MEDS: VITAMIN D 1,000 INTERNATIONAL UNITS TABLET PO (20:07)
[2018-03-13] MEDS: TAMSULOSIN 0.4 MG CAP PO (20:07)
[2018-03-13] MEDS: DONEPEZIL 5 MG TAB PO (20:07)
[2018-03-13] MEDS: FAMOTIDINE 20 MG TAB PO (20:07)
[2018-03-13] MEDS: ASPIRIN 81 MG ENTERIC TAB PO (20:07)
[2018-03-14 05:27] LABS: HEMATOCRIT 36.6 % (42.0-52.0); HEMOGLOBIN 12.1 g/dl (13.5-17.5); MEAN CORPUSCULAR HEMOGLOBIN 35.2 pg (27.0-33.0); MEAN CORPUSCULAR HGB CONC 33.1 g/dl (32.0-36.5); MEAN CORPUSCULAR VOLUME 106.4 fl (80.0-96.0); PLATELET COUNT, AUTOMATED 115 10^3/uL (150-450); RED BLOOD COUNT 3.44 10^6/uL (4.30-6.10); RED CELL DISTRIBUTION WIDTH 13.6 % (11.5-14.5); WHITE BLOOD COUNT 6.1 10^3/uL (4.0-10.0)
[2018-03-14] MEDS: SLF 3 ML SYR IV ×3 (05:32→20:08)
[2018-03-14 05:44] LABS: ANION GAP 6 MEQ/L (8-16); BLOOD UREA NITROGEN 33 MG/DL (7-18); CALCIUM LEVEL 9.4 MG/DL (8.8-10.2); CARBON DIOXIDE LEVEL 30 MEQ/L (21-32); CHLORIDE LEVEL 106 MEQ/L (98-107); CREATININE FOR GFR 1.92 MG/DL (0.70-1.30); GLOMERULAR FILTRATION RATE 35.7 (>35); GLUCOSE, FASTING 91 MG/DL (70-100); POTASSIUM SERUM 4.1 MEQ/L (3.5-5.1); SODIUM LEVEL 142 MEQ/L (136-145)
[2018-03-14] MEDS: APIXABAN 2.5 MG TAB (ELIQUIS) PO ×2 (08:56→20:08)
[2018-03-14] MEDS: DUTASTERIDE 0.5 MG CAP (AVODART) PO (08:56)
[2018-03-14] MEDS: FLUTICASONE PROP 0.05% NASAL SPRAY 16 GM (FLONASE) NARES (08:56)
[2018-03-14] MEDS: SPIRONOLACTONE 25 MG TAB PO (08:56)
[2018-03-14] MEDS: TORSEMIDE 10 MG TABLET PO (08:56)
[2018-03-14 09:56] LABS: PTH INTACT 75.5 PG/ML (18.5-88.0)
[2018-03-14] MEDS: TAMSULOSIN 0.4 MG CAP PO (20:07)
[2018-03-14] MEDS: DONEPEZIL 5 MG TAB PO (20:07)
[2018-03-14] MEDS: ASPIRIN 81 MG ENTERIC TAB PO (20:07)
[2018-03-14] MEDS: VITAMIN D 1,000 INTERNATIONAL UNITS TABLET PO (20:07)
[2018-03-14] MEDS: CARVedilol 3.125 MG TAB PO (20:08)
[2018-03-14] MEDS: FAMOTIDINE 20 MG TAB PO (20:08)
[2018-03-15] MEDS: SLF 3 ML SYR IV (05:16)
[2018-03-15 05:32] LABS: HEMATOCRIT 39.8 % (42.0-52.0); HEMOGLOBIN 13.2 g/dl (13.5-17.5); MEAN CORPUSCULAR HEMOGLOBIN 35.4 pg (27.0-33.0); MEAN CORPUSCULAR HGB CONC 33.2 g/dl (32.0-36.5); MEAN CORPUSCULAR VOLUME 106.7 fl (80.0-96.0); PLATELET COUNT, AUTOMATED 140 10^3/uL (150-450); RED BLOOD COUNT 3.73 10^6/uL (4.30-6.10); RED CELL DISTRIBUTION WIDTH 13.7 % (11.5-14.5); WHITE BLOOD COUNT 6.5 10^3/uL (4.0-10.0)
[2018-03-15 05:50] LABS: ANION GAP 7 MEQ/L (8-16); BLOOD UREA NITROGEN 31 MG/DL (7-18); CALCIUM LEVEL 9.4 MG/DL (8.8-10.2); CARBON DIOXIDE LEVEL 29 MEQ/L (21-32); CHLORIDE LEVEL 106 MEQ/L (98-107); CREATININE FOR GFR 2.08 MG/DL (0.70-1.30); GLOMERULAR FILTRATION RATE 32.5 (>35); GLUCOSE, FASTING 92 MG/DL (70-100); POTASSIUM SERUM 4.8 MEQ/L (3.5-5.1); SODIUM LEVEL 142 MEQ/L (136-145)
[2018-03-15] MEDS: SPIRONOLACTONE 25 MG TAB PO (08:24)
[2018-03-15] MEDS: DUTASTERIDE 0.5 MG CAP (AVODART) PO (08:24)
[2018-03-15] MEDS: CARVedilol 3.125 MG TAB PO (08:24)
[2018-03-15] MEDS: APIXABAN 2.5 MG TAB (ELIQUIS) PO (08:24)
[2018-03-15] MEDS: TORSEMIDE 10 MG TABLET PO (08:25)
[2018-03-15] MEDS: FLUTICASONE PROP 0.05% NASAL SPRAY 16 GM (FLONASE) NARES (08:26)
== END 2018-03-15 13:14 | disposition home or self-care (01) | DRG 308 ==
LOC: M ED INP 03-11 00:33 → M PCU 03-11 02:30 → M ED 21:31
DX: I48.91 Unspecified atrial fibrillation (principal); I50.43 Acute on chronic combined systolic (congestive) and diastolic (congestive) heart failure; N17.9 Acute kidney failure, unspecified; I13.0 Hypertensive heart and chronic kidney disease with heart failure and stage 1 through stage 4 chronic kidney disease, or unspecified chronic kidney disease; N18.3 Chronic kidney disease, stage 3 (moderate); M54.9 Dorsalgia, unspecified; D63.1 Anemia in chronic kidney disease; H26.9 Unspecified cataract; I95.9 Hypotension, unspecified; N40.1 Benign prostatic hyperplasia with lower urinary tract symptoms; I42.2 Other hypertrophic cardiomyopathy; R33.9 Retention of urine, unspecified; F03.90 Unspecified dementia, unspecified severity, without behavioral disturbance, psychotic disturbance, mood disturbance, and anxiety; Z79.82 Long term (current) use of aspirin; Z79.899 Other long term (current) drug therapy; Z87.891 Personal history of nicotine dependence; Z88.0 Allergy status to penicillin; Z85.828 Personal history of other malignant neoplasm of skin; Z88.8 Allergy status to other drugs, medicaments and biological substances; Z88.6 Allergy status to analgesic agent; E87.6 Hypokalemia; R53.1 Weakness

== ENCOUNTER 2018-03-23 10:43 | Inpatient (IN) | payer MEDICARE, BC ==
[2018-03-23 12:15] LABS: BASO # 0.1 10^3/uL (0.0-0.2); BASO % 0.7 % (0.0-1.0); EOS # 0.2 10^3/uL (0.0-0.50); EOS % 3.3 % (0.0-3.0); HEMATOCRIT 40.6 % (42.0-52.0); HEMOGLOBIN 13.4 g/dl (13.5-17.5); IMMATURE GRANULOCYTE % 0.3 % (0-3.0); LYMPH # 0.9 10^3/uL (1.5-4.5); LYMPH % 12.8 % (24.0-44.0); MEAN CORPUSCULAR HEMOGLOBIN 35.7 pg (27.0-33.0); MEAN CORPUSCULAR VOLUME 108.3 fl (80.0-96.0); MONO # 0.5 10^3/uL (0.0-0.8); MONO % 6.8 % (0.0-5.0); NEUTROPHILS # 5.4 10^3/uL (1.8-7.7); NEUTROPHILS % 76.1 % (36.0-66.0); PLATELET COUNT, AUTOMATED 171 10^3/uL (150-450); RED BLOOD COUNT 3.75 10^6/uL (4.30-6.10); RED CELL DISTRIBUTION WIDTH 14.2 % (11.5-14.5)
[2018-03-23 12:16] LABS: VENOUS HCO3 25.6 MEQ/L (23.0-27.0); VENOUS O2 SATURATION 73.8 % (60.0-80.0); VENOUS PARTIAL PRESSURE CO2 50.1 mmHg (38.0-50.0); VENOUS PARTIAL PRESSURE O2 42.9 mmHg (30.0-50.0); VENOUS PH 7.326 UNITS (7.330-7.430); VENOUS STANDARD HCO3 23.1 MEQ/L; VENOUS TOTAL CO2 27.1 MEQ/L (24.0-28.0)
[2018-03-23 12:26] LABS: INR 1.27; PROTHROMBIN TIME 16.1 SECONDS (12.1-14.4)
[2018-03-23 12:40] LABS: ALBUMIN 3.1 GM/DL (3.2-5.2); ALBUMIN/GLOBULIN RATIO 1.11 (1.00-1.93); ALKALINE PHOSPHATASE 86 U/L (45-117); ALT/SGPT 30 U/L (12-78); ANION GAP 10 MEQ/L (8-16); AST/SGOT 20 U/L (7-37); BILIRUBIN,DIRECT 0.3 MG/DL (0.0-0.2); BLOOD UREA NITROGEN 33 MG/DL (7-18); CALCIUM LEVEL 9.3 MG/DL (8.8-10.2); CARBON DIOXIDE LEVEL 27 MEQ/L (21-32); CHLORIDE LEVEL 107 MEQ/L (98-107); CPK CREATINE PHOSPHOKINASE 57 U/L (39-308); CREATININE FOR GFR 2.21 MG/DL (0.70-1.30); GLOMERULAR FILTRATION RATE 30.3 (>35); GLUCOSE, FASTING 87 MG/DL (70-100); POTASSIUM SERUM 4.6 MEQ/L (3.5-5.1); SODIUM LEVEL 144 MEQ/L (136-145); TOTAL PROTEIN 5.9 GM/DL (6.4-8.2); TROPONIN I 1.01 NG/ML (< 0.10)
[2018-03-23 12:46] LABS: CK-MB VALUE MASS 4.8 NG/ML (<3.6); MB/CK RELATIVE INDEX 8.42 (< OR =4); NT-PRO BNP 18909 PG/ML (<450)
[2018-03-23] MEDS: FUROSEMIDE 100 MG/10 ML VIAL (J1940) IV ×2 (13:44→16:31)
[2018-03-23] MEDS ORDERED: SLF 3 ML SYR IV (17:45)
[2018-03-23] MEDS: VITAMIN D 1,000 INTERNATIONAL UNITS TABLET PO (20:25)
[2018-03-23] MEDS: DONEPEZIL 5 MG TAB PO (20:25)
[2018-03-23] MEDS: FUROSEMIDE injection 250 MG in D5W 225 ML IV (20:25)
[2018-03-23] MEDS: FAMOTIDINE 20 MG TAB PO (20:25)
[2018-03-23] MEDS: APIXABAN 2.5 MG TAB (ELIQUIS) PO (20:25)
[2018-03-23] MEDS: TAMSULOSIN 0.4 MG CAP PO (20:25)
[2018-03-23] MEDS: MULTIVITAMINS/MINERALS THERAP 1 TAB PO (20:25)
[2018-03-23] MEDS: CARVedilol 3.125 MG TAB PO (20:25)
[2018-03-23] MEDS: SLF 3 ML SYR IV (20:26)
[2018-03-24] MEDS: SLF 3 ML SYR IV ×3 (06:00→20:41)
[2018-03-24 06:30] LABS: HEMOGLOBIN 13.8 g/dl (13.5-17.5); MEAN CORPUSCULAR HEMOGLOBIN 35.1 pg (27.0-33.0); MEAN CORPUSCULAR HGB CONC 32.9 g/dl (32.0-36.5); MEAN CORPUSCULAR VOLUME 106.9 fl (80.0-96.0); PLATELET COUNT, AUTOMATED 165 10^3/uL (150-450); RED BLOOD COUNT 3.93 10^6/uL (4.30-6.10); RED CELL DISTRIBUTION WIDTH 13.9 % (11.5-14.5); WHITE BLOOD COUNT 6.9 10^3/uL (4.0-10.0)
[2018-03-24 06:48] LABS: ALBUMIN/GLOBULIN RATIO 0.91 (1.00-1.93); ALKALINE PHOSPHATASE 86 U/L (45-117); ALT/SGPT 25 U/L (12-78); ANION GAP 8 MEQ/L (8-16); AST/SGOT 13 U/L (7-37); BILIRUBIN,TOTAL 1.1 MG/DL (0.2-1.0); BLOOD UREA NITROGEN 33 MG/DL (7-18); CALCIUM LEVEL 9.8 MG/DL (8.8-10.2); CARBON DIOXIDE LEVEL 30 MEQ/L (21-32); CHLORIDE LEVEL 106 MEQ/L (98-107); CREATININE FOR GFR 2.32 MG/DL (0.70-1.30); GLOMERULAR FILTRATION RATE 28.7 (>35); GLUCOSE, FASTING 83 MG/DL (70-100); NT-PRO BNP 23767 PG/ML (<450); POTASSIUM SERUM 3.8 MEQ/L (3.5-5.1); SODIUM LEVEL 144 MEQ/L (136-145); TOTAL PROTEIN 6.3 GM/DL (6.4-8.2)
[2018-03-24] MEDS: SPIRONOLACTONE 25 MG TAB PO (09:30)
[2018-03-24] MEDS: FUROSEMIDE 40 MG/4 ML VIAL (J1940) IV ×2 (09:30→16:23)
[2018-03-24] MEDS: OCUVITE 1 TAB PO ×2 (09:30→20:40)
[2018-03-24] MEDS: APIXABAN 2.5 MG TAB (ELIQUIS) PO ×2 (09:30→20:40)
[2018-03-24] MEDS: DUTASTERIDE 0.5 MG CAP (AVODART) PO (09:30)
[2018-03-24] MEDS: TIMOLOL MALEATE 0.5% OPHTH SOLN 5 ML OD (09:31)
[2018-03-24 10:50] LABS: CK-MB VALUE MASS 4.4 NG/ML (<3.6); CPK CREATINE PHOSPHOKINASE 44 U/L (39-308)
[2018-03-24 15:02] LABS: C REACTIVE PROTEIN QUANTITATIV 0.32 MG/DL (0.00-0.30); CK-MB VALUE MASS 3.9 NG/ML (<3.6); CPK CREATINE PHOSPHOKINASE 44 U/L (39-308); MB/CK RELATIVE INDEX 8.86 (< OR =4); TROPONIN I 1.16 NG/ML (< 0.10)
[2018-03-24] MEDS: TAMSULOSIN 0.4 MG CAP PO (20:40)
[2018-03-24] MEDS: VITAMIN D 1,000 INTERNATIONAL UNITS TABLET PO (20:40)
[2018-03-24] MEDS: FAMOTIDINE 20 MG TAB PO (20:40)
[2018-03-24] MEDS: DONEPEZIL 5 MG TAB PO (20:41)
[2018-03-24] MEDS: ATORVASTATIN 20 MG TAB PO (20:41)
[2018-03-24 22:25] LABS: MAGNESIUM LEVEL 2.2 MG/DL (1.8-2.4)
[2018-03-25] MEDS: SLF 3 ML SYR IV ×3 (05:04→21:11)
[2018-03-25 05:39] LABS: HEMATOCRIT 39.7 % (42.0-52.0); HEMOGLOBIN 13.3 g/dl (13.5-17.5); MEAN CORPUSCULAR HGB CONC 33.5 g/dl (32.0-36.5); MEAN CORPUSCULAR VOLUME 104.5 fl (80.0-96.0); PLATELET COUNT, AUTOMATED 148 10^3/uL (150-450); RED CELL DISTRIBUTION WIDTH 13.9 % (11.5-14.5); WHITE BLOOD COUNT 6.9 10^3/uL (4.0-10.0)
[2018-03-25 06:01] LABS: ALBUMIN 2.7 GM/DL (3.2-5.2); ALBUMIN/GLOBULIN RATIO 0.87 (1.00-1.93); ALKALINE PHOSPHATASE 76 U/L (45-117); ALT/SGPT 23 U/L (12-78); ANION GAP 7 MEQ/L (8-16); AST/SGOT 14 U/L (7-37); BILIRUBIN,TOTAL 0.9 MG/DL (0.2-1.0); BLOOD UREA NITROGEN 36 MG/DL (7-18); CALCIUM LEVEL 9.3 MG/DL (8.8-10.2); CARBON DIOXIDE LEVEL 31 MEQ/L (21-32); CHLORIDE LEVEL 104 MEQ/L (98-107); CREATININE FOR GFR 2.38 MG/DL (0.70-1.30); GLOMERULAR FILTRATION RATE 27.9 (>35); GLUCOSE, FASTING 87 MG/DL (70-100); MAGNESIUM LEVEL 2.2 MG/DL (1.8-2.4); POTASSIUM SERUM 3.7 MEQ/L (3.5-5.1); SODIUM LEVEL 142 MEQ/L (136-145); TOTAL PROTEIN 5.8 GM/DL (6.4-8.2)
[2018-03-25] MEDS: FUROSEMIDE 40 MG/4 ML VIAL (J1940) IV ×3 (09:06→15:38)
[2018-03-25] MEDS: ASPIRIN 81 MG ENTERIC TAB PO (09:07)
[2018-03-25] MEDS: DUTASTERIDE 0.5 MG CAP (AVODART) PO (09:07)
[2018-03-25] MEDS: SPIRONOLACTONE 25 MG TAB PO (09:07)
[2018-03-25] MEDS: OCUVITE 1 TAB PO ×2 (09:07→21:09)
[2018-03-25] MEDS: TIMOLOL MALEATE 0.5% OPHTH SOLN 5 ML OD (09:07)
[2018-03-25] MEDS: APIXABAN 2.5 MG TAB (ELIQUIS) PO ×2 (09:07→21:09)
[2018-03-25] MEDS: CARBAMIDE PEROXIDE 6.5% OTIC SOLN 15ML AU ×2 (13:00→21:08)
[2018-03-25] MEDS: FAMOTIDINE 20 MG TAB PO (21:09)
[2018-03-25] MEDS: VITAMIN D 1,000 INTERNATIONAL UNITS TABLET PO (21:09)
[2018-03-25] MEDS: DONEPEZIL 5 MG TAB PO (21:09)
[2018-03-25] MEDS: ATORVASTATIN 20 MG TAB PO (21:09)
[2018-03-25] MEDS: TAMSULOSIN 0.4 MG CAP PO (21:09)
[2018-03-26] MEDS: FUROSEMIDE 40 MG/4 ML VIAL (J1940) IV ×2 (00:22→08:08)
[2018-03-26 05:34] LABS: HEMATOCRIT 44.5 % (42.0-52.0); HEMOGLOBIN 14.8 g/dl (13.5-17.5); MEAN CORPUSCULAR HEMOGLOBIN 34.6 pg (27.0-33.0); MEAN CORPUSCULAR HGB CONC 33.3 g/dl (32.0-36.5); PLATELET COUNT, AUTOMATED 173 10^3/uL (150-450); RED BLOOD COUNT 4.28 10^6/uL (4.30-6.10); RED CELL DISTRIBUTION WIDTH 13.7 % (11.5-14.5); WHITE BLOOD COUNT 7.7 10^3/uL (4.0-10.0)
[2018-03-26 05:54] LABS: ALBUMIN 3.1 GM/DL (3.2-5.2); ALBUMIN/GLOBULIN RATIO 0.94 (1.00-1.93); ALKALINE PHOSPHATASE 86 U/L (45-117); ALT/SGPT 23 U/L (12-78); ANION GAP 7 MEQ/L (8-16); AST/SGOT 22 U/L (7-37); BILIRUBIN,TOTAL 1.1 MG/DL (0.2-1.0); BLOOD UREA NITROGEN 36 MG/DL (7-18); CALCIUM LEVEL 9.4 MG/DL (8.8-10.2); CARBON DIOXIDE LEVEL 32 MEQ/L (21-32); CHLORIDE LEVEL 101 MEQ/L (98-107); CREATININE FOR GFR 2.28 MG/DL (0.70-1.30); GLOMERULAR FILTRATION RATE 29.3 (>35); GLUCOSE, FASTING 119 MG/DL (70-100); MAGNESIUM LEVEL 2.2 MG/DL (1.8-2.4); POTASSIUM SERUM 3.8 MEQ/L (3.5-5.1); SODIUM LEVEL 140 MEQ/L (136-145); TOTAL PROTEIN 6.4 GM/DL (6.4-8.2)
[2018-03-26] MEDS: SLF 3 ML SYR IV ×3 (06:49→20:39)
[2018-03-26] MEDS: DUTASTERIDE 0.5 MG CAP (AVODART) PO (08:08)
[2018-03-26] MEDS: OCUVITE 1 TAB PO ×2 (08:08→20:38)
[2018-03-26] MEDS: SPIRONOLACTONE 25 MG TAB PO (08:08)
[2018-03-26] MEDS: CARBAMIDE PEROXIDE 6.5% OTIC SOLN 15ML AU ×2 (08:09→20:40)
[2018-03-26] MEDS: APIXABAN 2.5 MG TAB (ELIQUIS) PO ×2 (08:09→20:38)
[2018-03-26] MEDS: ASPIRIN 81 MG ENTERIC TAB PO (08:09)
[2018-03-26] MEDS: TIMOLOL MALEATE 0.5% OPHTH SOLN 5 ML OD (08:09)
[2018-03-26] MEDS: CARVedilol 3.125 MG TAB PO (12:37)
[2018-03-26] MEDS: TORSEMIDE 20 MG TAB PO (17:09)
[2018-03-26] MEDS: FAMOTIDINE 20 MG TAB PO (20:38)
[2018-03-26] MEDS: TAMSULOSIN 0.4 MG CAP PO (20:38)
[2018-03-26] MEDS: VITAMIN D 1,000 INTERNATIONAL UNITS TABLET PO (20:38)
[2018-03-26] MEDS: ATORVASTATIN 20 MG TAB PO (20:39)
[2018-03-27] MEDS: SLF 3 ML SYR IV ×3 (06:00→21:09)
[2018-03-27 06:02] LABS: MEAN CORPUSCULAR HEMOGLOBIN 34.4 pg (27.0-33.0); MEAN CORPUSCULAR HGB CONC 33.3 g/dl (32.0-36.5); MEAN CORPUSCULAR VOLUME 103.2 fl (80.0-96.0); PLATELET COUNT, AUTOMATED 151 10^3/uL (150-450); RED BLOOD COUNT 4.07 10^6/uL (4.30-6.10); RED CELL DISTRIBUTION WIDTH 13.7 % (11.5-14.5); WHITE BLOOD COUNT 7.2 10^3/uL (4.0-10.0)
[2018-03-27 06:25] LABS: ALBUMIN 2.9 GM/DL (3.2-5.2); ALBUMIN/GLOBULIN RATIO 0.91 (1.00-1.93); ALKALINE PHOSPHATASE 83 U/L (45-117); ALT/SGPT 21 U/L (12-78); ANION GAP 7 MEQ/L (8-16); AST/SGOT 20 U/L (7-37); BILIRUBIN,TOTAL 0.9 MG/DL (0.2-1.0); BLOOD UREA NITROGEN 39 MG/DL (7-18); CALCIUM LEVEL 9.3 MG/DL (8.8-10.2); CARBON DIOXIDE LEVEL 33 MEQ/L (21-32); CHLORIDE LEVEL 102 MEQ/L (98-107); GLUCOSE, FASTING 88 MG/DL (70-100); MAGNESIUM LEVEL 2.5 MG/DL (1.8-2.4); SODIUM LEVEL 142 MEQ/L (136-145); TOTAL PROTEIN 6.1 GM/DL (6.4-8.2)
[2018-03-27] MEDS: APIXABAN 2.5 MG TAB (ELIQUIS) PO ×2 (07:55→21:09)
[2018-03-27] MEDS: DUTASTERIDE 0.5 MG CAP (AVODART) PO (07:55)
[2018-03-27] MEDS: ASPIRIN 81 MG ENTERIC TAB PO (07:55)
[2018-03-27] MEDS: OCUVITE 1 TAB PO ×2 (07:55→21:08)
[2018-03-27] MEDS: CARVedilol 3.125 MG TAB PO (07:56)
[2018-03-27] MEDS: CARBAMIDE PEROXIDE 6.5% OTIC SOLN 15ML AU ×2 (07:56→21:09)
[2018-03-27] MEDS: SPIRONOLACTONE 25 MG TAB PO (07:56)
[2018-03-27] MEDS: TIMOLOL MALEATE 0.5% OPHTH SOLN 5 ML OD (07:56)
[2018-03-27] MEDS: TORSEMIDE 20 MG TAB PO ×2 (07:56→16:16)
[2018-03-27] MEDS: VITAMIN D 1,000 INTERNATIONAL UNITS TABLET PO (21:08)
[2018-03-27] MEDS: MEMANTINE 5MG TABLET (NAMENDA) PO (21:09)
[2018-03-27] MEDS: FAMOTIDINE 20 MG TAB PO (21:09)
[2018-03-27] MEDS: TAMSULOSIN 0.4 MG CAP PO (21:09)
[2018-03-27] MEDS: ATORVASTATIN 20 MG TAB PO (21:09)
[2018-03-28 05:16] LABS: HEMATOCRIT 41.6 % (42.0-52.0); HEMOGLOBIN 13.7 g/dl (13.5-17.5); MEAN CORPUSCULAR HEMOGLOBIN 34.7 pg (27.0-33.0); MEAN CORPUSCULAR HGB CONC 32.9 g/dl (32.0-36.5); MEAN CORPUSCULAR VOLUME 105.3 fl (80.0-96.0); PLATELET COUNT, AUTOMATED 133 10^3/uL (150-450); RED BLOOD COUNT 3.95 10^6/uL (4.30-6.10); RED CELL DISTRIBUTION WIDTH 13.9 % (11.5-14.5); WHITE BLOOD COUNT 6.9 10^3/uL (4.0-10.0)
[2018-03-28 05:37] LABS: ALBUMIN/GLOBULIN RATIO 1.15 (1.00-1.93); ALKALINE PHOSPHATASE 80 U/L (45-117); ALT/SGPT 20 U/L (12-78); ANION GAP 10 MEQ/L (8-16); AST/SGOT 21 U/L (7-37); BILIRUBIN,TOTAL 1.2 MG/DL (0.2-1.0); BLOOD UREA NITROGEN 39 MG/DL (7-18); CALCIUM LEVEL 9.2 MG/DL (8.8-10.2); CARBON DIOXIDE LEVEL 30 MEQ/L (21-32); CHLORIDE LEVEL 103 MEQ/L (98-107); CREATININE FOR GFR 2.33 MG/DL (0.70-1.30); GLOMERULAR FILTRATION RATE 28.6 (>35); GLUCOSE, FASTING 80 MG/DL (70-100); MAGNESIUM LEVEL 2.3 MG/DL (1.8-2.4); SODIUM LEVEL 143 MEQ/L (136-145); TOTAL PROTEIN 5.6 GM/DL (6.4-8.2)
[2018-03-28] MEDS: SLF 3 ML SYR IV (06:00)
[2018-03-28] MEDS: ASPIRIN 81 MG ENTERIC TAB PO (09:18)
[2018-03-28] MEDS: OCUVITE 1 TAB PO (09:19)
[2018-03-28] MEDS: TORSEMIDE 20 MG TAB PO (09:19)
[2018-03-28] MEDS: CARVedilol 3.125 MG TAB PO (09:19)
[2018-03-28] MEDS: APIXABAN 2.5 MG TAB (ELIQUIS) PO (09:20)
[2018-03-28] MEDS: SPIRONOLACTONE 12.5MG PER 1/2 TABLET PO (09:20)
[2018-03-28] MEDS: DUTASTERIDE 0.5 MG CAP (AVODART) PO (09:21)
[2018-03-28] MEDS: TIMOLOL MALEATE 0.5% OPHTH SOLN 5 ML OD (09:22)
[2018-03-28] MEDS: CARBAMIDE PEROXIDE 6.5% OTIC SOLN 15ML AU (09:23)
== END 2018-03-28 12:20 | disposition home or self-care (01) | DRG 291 ==
LOC: M ED 10:43 → M ED INP 15:40 → M PCU 18:25
DX: I13.0 Hypertensive heart and chronic kidney disease with heart failure and stage 1 through stage 4 chronic kidney disease, or unspecified chronic kidney disease (principal); I50.43 Acute on chronic combined systolic (congestive) and diastolic (congestive) heart failure; N17.9 Acute kidney failure, unspecified; I48.1 Persistent atrial fibrillation; I47.2 Ventricular tachycardia; N18.4 Chronic kidney disease, stage 4 (severe); M54.9 Dorsalgia, unspecified; F03.90 Unspecified dementia, unspecified severity, without behavioral disturbance, psychotic disturbance, mood disturbance, and anxiety; D63.1 Anemia in chronic kidney disease; N40.1 Benign prostatic hyperplasia with lower urinary tract symptoms; I27.20 Pulmonary hypertension, unspecified; Z66 Do not resuscitate; H40.9 Unspecified glaucoma; G47.33 Obstructive sleep apnea (adult) (pediatric); H35.30 Unspecified macular degeneration; R33.9 Retention of urine, unspecified; Z85.828 Personal history of other malignant neoplasm of skin; Z79.01 Long term (current) use of anticoagulants; Z79.899 Other long term (current) drug therapy; Z88.0 Allergy status to penicillin; Z88.8 Allergy status to other drugs, medicaments and biological substances

== ENCOUNTER → 2018-03-30 | Outpatient (REF) | payer MEDICARE, BC ==
[2018-03-30 15:08] LABS: PTH INTACT 92.4 PG/ML (18.5-88.0)
== END ==
LOC: M LAB REF 14:16
DX: N18.4 Chronic kidney disease, stage 4 (severe) (principal)
CPT/HCPCS: 83970

== ENCOUNTER → 2018-06-06 | Outpatient (REF) | payer MEDICARE, BC ==
[2018-06-06 17:07] LABS: PTH INTACT 218.5 PG/ML (18.5-88.0)
== END ==
LOC: M LAB REF 16:41
DX: N18.4 Chronic kidney disease, stage 4 (severe) (principal)
CPT/HCPCS: 83970

== ENCOUNTER → 2018-09-05 | Outpatient (REF) | payer MEDICARE, BC ==
[~2018-09-05] MED LIST changes: +/TAMS4CA PO; +ACET65TA PO; +ADVIL PO; +ALDA25TA2 PO; +AMBI5TAB; +AMLO5TAB OR; +ASPI1TAB15 PO; +ASPI81TA45; +ASPI81TA45 OR; +ASPI81TAEC PO; +ASTELIN NASAL SPRAY; +ATOR1TAB21 PO; +AVOD0.5C PO; +AZEL0.055; +AZEL1SPR3; +BIMA01SOL OD; +BISA5TA; +CADUET PO; +CARV3.12 PO; +CIPR-249 PO; +COLA100C2; +COLA100C2 OR; +DEMA20TA6 PO; +DONE5TAB64 PO; +DONETAB5 PO; +ELIQ2.5T PO; +FLOM0.4C39 PO; +HYDR-3713 PO; +HYDR25TA6; +HYDROCORTISONE0.5 %; +K-TA10TA2 PO; +LIPI10TA OR; -LR 1,000 ML IV; +LUMIGAN 0.03%; +MAALSUS; +MEMA1TAB2 PO; +NEUR100C; +NEUR300C; +OCUVTAB4 PO; +PERC5TAB8; +PERC5TAB8 OR; +PERC7.5T8 OR; +POTA1TAB23 PO; +PRESCAP6 PO; +PRESERVISION EYE VIT PO; +PYRI1TAB5 PO; +RANI150C; +RANI150T PO; +SKEL800T5; +SPIR-10 PO; +TERA10CA; +TIMO0.5S; +TIMO0.5S29 OD; +TIMOLOL; +TIMOLOL 0.5% OU; +TORS10TA3 PO; +TORS20TA2 PO; +TYLENOL PO; +VITA200015 PO; +VITA20008 PO; +hydrochlorothiazide PO; +metamucil; +ocuvite; +preservision
[2018-09-05 18:49] LABS: FREE T4 1.01 NG/DL (0.76-1.46); THYROID STIMULATING HORMONE 2.12 uIU/ML (0.358-3.740)
== END ==
LOC: M LAB REF 18:07
PROVIDERS: ATTEND Internal Medicine Nephrology
DX: I48.2 Chronic atrial fibrillation (principal)

== ENCOUNTER 2018-09-12 11:06 | Inpatient (IN) | payer MEDICARE, BC ==
[~2018-09-12] VITALS: Ht 177.8 cm; Wt 75.9 kg
[2018-09-12 11:56] LABS: VENOUS BASE EXCESS 3.9 (-2.0-2.0); VENOUS HCO3 30.4 MEQ/L (23.0-27.0); VENOUS O2 SATURATION 74.9 % (60.0-80.0); VENOUS PARTIAL PRESSURE CO2 51.8 mmHg (38.0-50.0); VENOUS PARTIAL PRESSURE O2 43.5 mmHg (30.0-50.0); VENOUS PH 7.387 UNITS (7.330-7.430); VENOUS STANDARD HCO3 27.2 MEQ/L
[2018-09-12 11:57] LABS: BASO # 0.1 10^3/uL (0.0-0.2); BASO % 0.9 % (0.0-1.0); EOS # 0.3 10^3/uL (0.0-0.50); EOS % 3.7 % (0.0-3.0); HEMATOCRIT 49.9 % (42.0-52.0); HEMOGLOBIN 16.7 g/dl (13.5-17.5); LYMPH # 1.1 10^3/uL (1.5-4.5); LYMPH % 13.4 % (24.0-44.0); MEAN CORPUSCULAR HEMOGLOBIN 36.1 pg (27.0-33.0); MEAN CORPUSCULAR HGB CONC 33.5 g/dl (32.0-36.5); MONO # 0.8 10^3/uL (0.0-0.8); NEUTROPHILS # 5.8 10^3/uL (1.8-7.7); NEUTROPHILS % 71.8 % (36.0-66.0); PLATELET COUNT, AUTOMATED 146 10^3/uL (150-450); RED BLOOD COUNT 4.62 10^6/uL (4.30-6.10); WHITE BLOOD COUNT 8.1 10^3/uL (4.0-10.0)
[2018-09-12 12:08] LABS: INR 1.25; PROTHROMBIN TIME 15.9 SECONDS (12.1-14.4)
[2018-09-12 12:11] LABS: D-DIMER QUANT 850.25 ng/ml (<500)
--- NOTE | 2018-09-12 12:20 | REP ---
Chest two views HISTORY: Cough Comparison: 03/23/2018 An increase in interstitial markings is present in the lungs consistent with chronic interstitial change. Normal density is present in the lower lobes consistent with bibasilar atelectasis or infiltrates. There is blunting of the left costophrenic angle due to a small pleural effusion. The cardiac silhouette is enlarged. The pulmonary vasculature is normal in appearance. The bony structure is intact. IMPRESSION: 1. Bibasilar atelectasis or infiltrates. 2. Chronic interstitial change. 3. Small left pleural effusion. 4. Cardiomegaly. Electronically Signed by Shaun Marshall MD 09/12/2018 12:12 P
[2018-09-12 12:33] LABS: CALCIUM LEVEL 9.6 MG/DL (8.8-10.2); CREATININE FOR GFR 2.4 MG/DL (0.70-1.30); GLOMERULAR FILTRATION RATE 27.6 (>35); MB/CK RELATIVE INDEX 10.59 (< OR =4); TROPONIN I 1.94 NG/ML (< 0.10)
[2018-09-12] MEDS ORDERED: ATOR1TAB21 PO (13:45)
[2018-09-12] MEDS ORDERED: TORS20TA2 PO (13:45)
[2018-09-12] MEDS ORDERED: ASPI81TAEC PO (13:45)
[2018-09-12] MEDS ORDERED: CARV3.12 PO (13:45)
[2018-09-12] MEDS ORDERED: HEPARIN DRIP 25,000 UNITS in APPROPRIATE DILUENT 1 EA IV SCH ×2 (15:30→17:42)
[2018-09-12] MEDS ORDERED: HEPARIN SOD (PORCINE) 5000 UNITS/ML VIAL IV ONE (15:30)
[2018-09-12] MEDS ORDERED: HEPARIN SOD (PORCINE) 5000 UNITS/ML VIAL IV PRN (15:30)
[2018-09-12 16:26] LABS: HEMATOCRIT 49.6 % (42.0-52.0); HEMOGLOBIN 16.5 g/dl (13.5-17.5); MEAN CORPUSCULAR HEMOGLOBIN 35.6 pg (27.0-33.0); MEAN CORPUSCULAR HGB CONC 33.3 g/dl (32.0-36.5); MEAN CORPUSCULAR VOLUME 107.1 fl (80.0-96.0); PLATELET COUNT, AUTOMATED 131 10^3/uL (150-450); RED BLOOD COUNT 4.63 10^6/uL (4.30-6.10); WHITE BLOOD COUNT 7.4 10^3/uL (4.0-10.0)
[2018-09-12 17:13] VITALS: BP 122/80
--- NOTE | 2018-09-12 18:19 | HPE ---
DATE OF ADMISSION: 09/12/2018 An 82-year-old male with past medical history of chronic atrial fibrillation, on Eliquis, history of chronic systolic heart failure with ejection fraction of 35%, history of chronic kidney disease (CKD), stage V, hypertension who presents to the emergency room because of chronic shortness of breath and results of a chest x-ray that was done and ordered by Dr. Cartagena. Upon seeing the patient, the emergency room (ER) attending did a basic metabolic panel (BMP), complete blood count (CBC) and troponin, and the patient was found to have a troponin of 1.9 and the 12-lead EKG showed new EKG change with T wave inversions in precordial leads II and III. Dr. Murillo was consulted and it was decided that we are going to treat him for xvi-[id number] myocardial infarction (NSTEMI) but we are going to start IV heparin when his second dose of Eliquis is due. He will be admitted for further management. He denies any chest pain. His shortness of breath again is chronic not acute. He denies any palpitations, diaphoresis, or subjective feeling of fever, aches or chills. PAST MEDICAL HISTORY: 1. Chronic systolic heart failure, ejection fraction of 35%. 2. Chronic atrial fibrillation, on Eliquis. 3. History of hypertension. 4. Chronic kidney disease (CKD), stage V. 5. Chronic back pain. 6. Hyperlipidemia. 7. Dementia. ALLERGIES: He had drug allergies to PENICILLIN and PENICILLIN CROSS REACTORS. FAMILY HISTORY: Negative for early coronary artery disease. SOCIAL HISTORY: The patient denies tobacco, alcohol or illicit drugs. MEDICATIONS: He takes at home are as follows: - apixaban 2.5 mg orally twice daily - aspirin 81 mg orally daily - atorvastatin 20 mg orally at bedtime - azelastine two sprays intranasal twice a day as needed - bimatoprost one drop to the right eye at bedtime - Coreg 3.125 mg orally at bedtime - cholecalciferol 2000 units orally at bedtime - dutasteride 0.5 mg orally daily - memantine 10 mg orally at bedtime - multivitamin one tablet orally twice daily - potassium chloride 10 mEq orally three times a day - ranitidine one tablet orally at bedtime - timolol one drop to the right eye daily - torsemide 20 mg orally twice daily REVIEW OF SYSTEMS: Negative for all 10 major systems except which is mentioned in the history of present illness (HPI). VITAL SIGNS: Blood pressure is 115/84, heart rate is 79 and regular, respiratory rate is 16, temperature is 97.2, oxygen saturation is 98% on two liters nasal cannula. HEAD: Normocephalic, atraumatic. NECK: Supple with no jugular venous distention (JVD). LUNGS: Clear to auscultation. S1, S2 audible. No murmurs appreciated. ABDOMEN: Soft. Positive bowel sounds. No pedal edema. SKIN: Intact. NEUROLOGIC: The patient is awake, alert, and oriented times three. LABORATORY DATA: Sodium 144, potassium 4.0, chloride 104, CO2 30, BUN 49, creatinine 2.4, lactic acid is 1.8, glucose 74, troponin is 1.94 first set. WBC is 8.1, hemoglobin is 16.7, hematocrit 49.9, platelets are 146,000. VBG: PH is 7.387. Chest x-ray shows bibasilar atelectasis and chronic interstitial changes with cardiomegaly. IMPRESSION: Log-JK-avhmfmusl myocardial infarction (IA). PLAN: The patient is to be admitted to the intensive care unit (ICU). The patient is already on Coreg so he has a beta katlyn. We are going to start the patient on IV heparin maintenance dose only by kg body weight as per Dr. Murillo. Dr. Murillo has been placed on official consult. We will continue all of his preadmission medication, order an echocardiogram in the morning, and we will follow serial troponins to see their trends. We will continue following his care in the ICU. TOTAL CRITICAL CARE TIME: 35 minutes.
--- NOTE | 2018-09-12 19:28 | CR ---
DATE OF CONSULTATION: 09/12/2018 INDICATION: Elevated troponin, atrial fibrillation. HISTORY OF PRESENT ILLNESS: Mr. Sam is an 82-year-old man who came to the hospital emergency room earlier today. Apparently he was told by his summer associate last week that he has left pleural effusion. He was sent for blood work and a chest x-ray, but when he did not hear back, he actually ended up coming to emergency room. When I asked him why he came, he says that he just has not been feeling well in the way of feeling tired and having low energy. Apparently this has been going on for quite some time. He adamantly denies any chest discomfort. He denies any sensation of palpitations, dizziness, near/syncope. On presentation to the emergency room, electrocardiogram revealed presence of atrial fibrillation with ventricular rate 77 beats per minute. He has right bundle branch block, evidence for old inferior wall myocardial infarction, and nonspecific repolarization abnormality in virtually all leads but most prominently V1 to V3. His troponin was elevated at 1.94 with total CK 102 and CK-MB 11. Subsequent troponin at 1615 hours was for even slightly higher at 2.03. The patient continues to deny any symptoms currently. When I am seeing the patient in intensive care unit (ICU) bed, he is comfortable talking, tells me that besides feeling tired, he has no other symptoms. PAST MEDICAL HISTORY: 1. Chronic atrial fibrillation diagnosed in 2018, chronically anticoagulated with renally adjusted dose of Eliquis and he is also on tiny dose of Coreg. 2. Chronic renal insufficiency, stage IV. 3. History of BPH. 4. Glaucoma. 5. Dyslipidemia. 6. Hypertension. 7. Congestive heart failure. He had an echocardiogram during his hospitalization in March 2018 that revealed left ventricle ejection fraction approximately 35%. 8. Dementia. SURGICAL HISTORY: 1. Right lung decortication. 2. Bilateral cataract surgery. 3. Rotator cuff repair. 4. Appendectomy. 5. Back surgery. 6. Rezum procedure for BPH. SOCIAL HISTORY: The patient is , lives with his . Quit smoking about 40-50 years ago. No significant alcohol use. Currently DO NOT INTUBATE/DO NOT RESUSCITATE (DNI/DNR). FAMILY HISTORY: Mother of breast cancer in advanced age and father had also some form of cancer and in his 80s. OUTPATIENT MEDICATIONS: Aspirin 81 mg a day, Lipitor 20 mg a day, Avodart 0.5 mg a day, Coreg 3.125 mg at bedtime, Eliquis 2.5 mg twice a day, memantine 10 mg a day, potassium 10 mEq once a day, ranitidine 150 mg at night, tamsulosin 0.4 mg a day, Timolol eye drops, torsemide 20 mg twice a day and vitamin D3. He reports intolerance or allergies to GUAIFENESIN and PENICILLIN. REVIEW OF SYSTEMS: The patient denies any chest pain recently. He denies any nausea, vomiting, diarrhea. He denies any bleeding problems. He denies headache. He also denies any palpitations, syncope, paroxysmal nocturnal dyspnea (PND), or orthopnea. He does report that he has occasional peripheral edema but typically not very prominent. He does bitterly complain about feeling tired, exhausted and having low energy and having exertional dyspnea. PHYSICAL EXAMINATION: Mr. Sam is an elderly man who is currently in ICU bed, comfortable, in semiupright, easily conversing with me, in no distress. Blood pressure 122/80, heart rate has been mostly in 70s and 80s, is atrial fibrillation with wide QRS complex, not much ventricle ectopy, certainly no VT. Saturation is 98% on 2 liters of oxygen by nasal cannula and he is afebrile. Weight is documented at 74-1/2 kg. He is alert and oriented times three. His jugular venous pressure (JVP) is not elevated. Lungs sound reasonably clear to auscultation on the right. I do not appreciate any wheezing, crackles or rhonchi. They are somewhat diminished in the base on the left but not very much; again, no wheezing, rhonchi, or crackles are apparent. Heart: Exam reveals irregularly irregular rhythm. There is a murmur heard throughout precordium but best at the apex, not very loud, fairly faint. I do not appreciate a rub or gallop. Abdomen is soft. No tenderness. No hepatosplenomegaly. Extremities: About 1+ edema. Peripheral pulses are palpable but not of good quality. Neurologically, he is alert and oriented times three, but simultaneously he provides fairly limited history and it is apparent that he has memory problems. But speech is intact and for casual conversation, he can carry it without difficulty. LABORATORY: CBC: Hemoglobin 16.5, hematocrit 49, platelet count 131,000. Basic metabolic panel: Sodium 144, potassium 4.0, creatinine 2.4 for GFR 28 and glucose 74, lactic acid was 1.8. Cardiac enzymes as per history of the present illness. Blood gas was obtained and reveals pH 7.4 with pCO2 52 and pO2 43, it is clearly venous. Chest x-ray reveals prominent cardiomegaly. I am not convinced about pleural effusion; if anything, it is very small. No convincing congestive heart failure. ECG as per history of present illness. ASSESSMENT/PLAN: Mr. Sam is an 82-year-old man who has, at this point, chronic atrial fibrillation which seems to be reasonably well rate controlled on trivial dose of carvedilol. He does have very abnormal QRS complex suggestive of old inferior wall myocardial infarction ([place]), and simultaneously has right bundle branch block. There are also very prominent diffuse repolarization abnormalities. He has elevated troponin so far without any appreciable trend. He is known to have severe left ventricular systolic dysfunction based on his presentation in 2018. At this point, the principal decision is how to pursue further evaluation for his ischemic heart disease. Since his prior hospitalizations, no further cardiac testing was obtained. When I saw him then, it was my impression that he is not a candidate for any invasive measures. I have to say that his mental status seems to be quite a bit better compared to his situation last year. When I ask him whether he would pursue any further evaluation, including possibility of open heart surgery, he said that he would even though I am not convinced that he is realizing what it actually implies. 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 I will attempt to contact her again tomorrow. For the time being, I would continue current management with aspirin and will transition his Eliquis to heparin. But he does not have any clear-cut congestive heart failure, and I think his volume status is essentially euvolemic, so I do not believe that we need to make any further attempts for diuresing him. I am afraid that if he should pursue further cardiac evaluation, he should have a coronary angiogram which certainly would be very high risk procedure, and I suspect that it potentially could be followed by open heart surgery and defibrillator placement, which is a proposition that to me is difficult to imagine as benefiting the patient. But, nevertheless, I will have to address it with family again tomorrow. Otherwise, as far as additional supportive management is concerned, his blood pressure is well controlled, his heart rate is also well controlled. He is on aspirin, statin and very low dose of beta katlyn, and there is a history of bradycardia so I do not believe that should be advanced further. MISHA
--- NOTE | 2018-09-12 19:52 | ECGEPIP ---
Stationary ECG Study [facility] - ED Test Date: 2018-09-12 Pat Name: TABBY HOWELL Department: Room: - Gender: M Painter Helper Spray: ALVAREZ : 1935 Requested By: Clementina Mccollum Order Number: [id number] Reading MD: Clementina Mccollum Measurements Intervals [place] Rate: 77 P: NE: 0 QRS: 253 QRSD: 165 T: -1 QT: 455 QTc: 515 Interpretive Statements ATRIAL FIBRILLATION MARKED RIGHT AXIS DEVIATION RIGHT BUNDLE BRANCH BLOCK PROBABLE SEPTAL MYOCARDIAL INFARCTION, OF INDETERMINATE AGE INFERIOR MYOCARDIAL INFARCTION, OF INDETERMINATE AGE CW /15/18 - RATE INCREASED NEW ST/T WAVE CHANGES v2-3 - RULE OUT ISHCEMIA CLINICAL CORRELATION ADVISED Electronically Signed On 09-12-2018 19:52:13 EST by Clementina Mccollum
[2018-09-12 20:00] VITALS: BP 103/57
[2018-09-12] MEDS ORDERED: CARVedilol 3.125 MG TAB PO SCH (21:00)
[2018-09-12] MEDS ORDERED: VITAMIN D 1,000 INTERNATIONAL UNITS TABLET PO SCH (21:00)
[2018-09-12] MEDS ORDERED: MEMANTINE 5MG TABLET (NAMENDA) PO SCH (21:00)
[2018-09-12] MEDS ORDERED: APIXABAN 2.5 MG TAB (ELIQUIS) PO SCH (21:00)
[2018-09-12] MEDS ORDERED: ATORVASTATIN 20 MG TAB PO SCH (21:00)
[2018-09-12] MEDS ORDERED: FAMOTIDINE 20 MG TAB PO SCH (21:00)
[2018-09-12 21:08] VITALS: BP 103/57
[2018-09-12] MEDS: OCUVITE 1 TAB PO SCH (21:08)
[2018-09-12] MEDS: POTASSIUM CHLORIDE 10 MEQ SR TABLET PO SCH (21:09)
[2018-09-12 22:00] VITALS: BP 94/61
[2018-09-13] VITALS: BP 105/71
[2018-09-13 04:00] VITALS: BP 111/74
[2018-09-13 05:11] LABS: BASO # 0.1 10^3/uL (0.0-0.2); EOS # 0.4 10^3/uL (0.0-0.50); EOS % 5.1 % (0.0-3.0); HEMATOCRIT 47.5 % (42.0-52.0); HEMOGLOBIN 15.7 g/dl (13.5-17.5); LYMPH % 14.8 % (24.0-44.0); MEAN CORPUSCULAR HEMOGLOBIN 35.6 pg (27.0-33.0); MEAN CORPUSCULAR HGB CONC 33.1 g/dl (32.0-36.5); MEAN CORPUSCULAR VOLUME 107.7 fl (80.0-96.0); MONO # 0.7 10^3/uL (0.0-0.8); NEUTROPHILS # 4.8 10^3/uL (1.8-7.7); NEUTROPHILS % 68.8 % (36.0-66.0); PLATELET COUNT, AUTOMATED 128 10^3/uL (150-450); RED BLOOD COUNT 4.41 10^6/uL (4.30-6.10)
[2018-09-13 05:34] LABS: CALCIUM LEVEL 9.4 MG/DL (8.8-10.2); CREATININE FOR GFR 2.34 MG/DL (0.70-1.30); GLOMERULAR FILTRATION RATE 28.4 (>35); POTASSIUM SERUM 4.1 MEQ/L (3.5-5.1)
[2018-09-13 08:22] VITALS: BP 109/73
[2018-09-13] MEDS ORDERED: ASPIRIN 81 MG ENTERIC TAB PO SCH (09:00)
[2018-09-13] MEDS ORDERED: TORSEMIDE 20 MG TAB PO SCH (09:00)
[2018-09-13] MEDS ORDERED: DUTASTERIDE 0.5 MG CAP (AVODART) PO SCH (09:00)
[2018-09-13] MEDS: POTASSIUM CHLORIDE 10 MEQ SR TABLET PO SCH (09:05)
[2018-09-13] MEDS: OCUVITE 1 TAB PO SCH (09:06)
[2018-09-13 11:23] VITALS: BP 118/78
--- NOTE | 2018-09-13 13:48 | DS.PDOC ---
Discharge Summary General Date of Admission Sep 12, 2018 at 15:30 Date of Discharge 09/13/18 Specialist/Consultants Involve: Yue Murillo MD Discharge Summary PROCEDURES PERFORMED DURING STAY: [None]. DISCHARGE DIAGNOSES: 1. NSTEMI SECONDARY DIAGNOSES: 1. Chronic systolic heart failure, ejection fraction of 35%. 2. Chronic atrial fibrillation, on Eliquis. 3. History of hypertension. 4. Chronic kidney disease (CKD), stage V. 5. Chronic back pain. 6. Hyperlipidemia. 7. Dementia. COMPLICATIONS/CHIEF COMPLAINT: shortness of breath HISTORY OF PRESENT ILLNESS: An 82-year-old male with past medical history of chronic atrial fibrillation, on Eliquis, history of chronic systolic heart failure with ejection fraction of 35%, history of chronic kidney disease (CKD), stage V, hypertension who presents to the emergency room because of chronic shortness of breath and results of a chest x-ray that was done and ordered by Dr. Cartagena. Upon seeing the patient, the emergency room (ER) attending did a basic metabolic panel (BMP), complete blood count (CBC) and troponin, and the patient was found to have a troponin of 1.9 and the 12-lead EKG showed new EKG change with T wave inversions in precordial leads II and III. Dr. Murillo was consulted and it was decided that we are going to treat him for [id number]-[id number] myocardial infarction (NSTEMI) but we are going to start IV heparin when his second dose of Eliquis is due. He will be admitted for further management. He denies any chest pain. His shortness of breath again is chronic not acute. He denies any palpitations, diaphoresis, or subjective feeling of fever, aches or chills. PAST MEDICAL HISTORY: HOSPITAL COURSE: Patient was found to have elevated troponins/NSTEMI. Cardiology was consulted for further assistance. He was initially DNR/DNI, however he rescinded this, and was made full code. He was also interested in aggressive measures including coronary angiogram, percutaneous intervention and bypass grafting. He was found to be very aware and informed with respect to medical decision making. He was transferred to [facility] for further interventional procedures. DISCHARGE MEDICATIONS: Please see below. ALLERGIES: Please see below. PHYSICAL EXAMINATION ON DISCHARGE: VITAL SIGNS: Please see below. GENERAL: NAD HEENT: NC/AT, EOMI, PERRL NECK: supple CARDIOVASCULAR EXAMINATION: +S1S2, irregular RESPIRATORY EXAMINATION: CTA B/L ABDOMINAL EXAMINATION: soft, NT, +BS EXTREMITIES: no edema SKIN: no rashes NEUROLOGICAL EXAMINATION: no gross focal deficits PSYCHIATRIC EXAMINATION: AAOx3 LABORATORY DATA: Please see below. PROGNOSIS: Guarded ACTIVITY: [As tolerated]. DISCHARGE PLAN: Transfer to [facility] DISPOSITION: 02 Xfer To Acute Hosp. DISCHARGE INSTRUCTIONS: 1. Further direction as per receiving facility. DISCHARGE CONDITION: [Stable]. TIME SPENT ON DISCHARGE: Greater than 30 minutes. Vital Signs/I&Os Vital Signs Date Time Temp Pulse Resp B/P (MAP) Pulse Ox O2 Delivery O2 Flow Rate FiO2 09/13/18 11:23 97.2 118/78 (91) 09/13/18 08:22 79 20 97 2.0 09/12/18 16:06 Nasal Cannula I&O- Last 24 Hours up to 6 AM 09/13/18 06:00 Intake Total 594 ml Output Total 825 ml Balance -231 ml Laboratory Data Labs 24H Laboratory Tests 2 09/12/18 16:15: Nucleated Red Blood Cells % (auto) 0.0, Activated Partial Thromboplast Time 35.3, Troponin I 2.03*H 09/12/18 23:55: Activated Partial Thromboplast Time 118.4H 09/13/18 04:44: Nucleated Red Blood Cells % (auto) 0.0, Activated Partial Thromboplast Time 123.9*H, Troponin I 2.11*H, Immature Granulocyte % (Auto) 0.3, White Blood Count 7.0, Red Blood Count 4.41, Hemoglobin 15.7, Hematocrit 47.5, Mean Corpuscular Volume 107.7H, Mean Corpuscular Hemoglobin 35.6H, Mean Corpuscular Hemoglobin Concent 33.1, Red Cell Distribution Width 16.6H, Platelet Count 128L, Neutrophils (%) (Auto) 68.8H, Lymphocytes (%) (Auto) 14.8L, Monocytes (%) (Auto) 10.0H, Eosinophils (%) (Auto) 5.1H, Basophils (%) (Auto) 1.0, Neutrophils # (Auto) 4.8, Lymphocytes # (Auto) 1.0L, Monocytes # (Auto) 0.7, Eosinophils # (Auto) 0.4, Basophils # (Auto) 0.1, Anion Gap 6L, Glomerular Filtration Rate 28.4L, Blood Urea Nitrogen 48H, Creatinine 2.34H, Sodium Level 147H, Potassium Level 4.1, Chloride Level 106, Carbon Dioxide Level 35H, Calcium Level 9.4 CBC/BMP Laboratory Tests 09/12/18 16:15 Red Blood Count 4.63, Mean Corpuscular Volume 107.1 H, Mean Corpuscular Hemoglobin 35.6 H, Mean Corpuscular Hemoglobin Concent 33.3, Red Cell Distribution Width 16.5 H 09/13/18 04:44 Red Blood Count 4.41, Mean Corpuscular Volume 107.7 H, Mean Corpuscular Hemoglobin 35.6 H, Mean Corpuscular Hemoglobin Concent 33.1, Red Cell Distribution Width 16.6 H, Neutrophils (%) (Auto) 68.8 H, Lymphocytes (%) (Auto) 14.8 L, Monocytes (%) (Auto) 10.0 H, Eosinophils (%) (Auto) 5.1 H, Basophils (%) (Auto) 1.0, Neutrophils # (Auto) 4.8, Lymphocytes # (Auto) 1.0 L, Monocytes # (Auto) 0.7, Eosinophils # (Auto) 0.4, Basophils # (Auto) 0.1, Calcium Level 9.4 Microbiology Microbiology 09/12/18 Blood Culture - Preliminary, Resulted No growth after 24 hours . All specim... 09/12/18 Blood Culture - Preliminary, Resulted No growth after 24 hours . All specim... Discharge Medications Scheduled Apixaban Base (Eliquis) 2.5 Mg Tab, 2.5 MG PO BID, (Reported) Aspirin (Aspirin EC) 81 Mg Tabec, 81 MG PO DAILY, (Reported) Atorvastatin Calcium (Atorvastatin Calcium) 20 Mg Tab, 20 MG PO QHS, (Reported) Bimatoprost (Lumigan) 50 Drop/2.5 Ml Brielle, 1 DROP OD QHS, (Reported) Carvedilol (Carvedilol) 3.125 Mg Tab, 3.125 MG PO QHS, (Reported) Cholecalciferol (Vitamin D) 2,000 Unit Tab, 2,000 UNIT PO QHS, (Reported) Dutasteride (Avodart) 0.5 Mg Cap, 0.5 MG PO DAILY, (Reported) Memantine Hydrochloride (Memantine HCl) 10 Mg Tab, 10 MG PO QHS, (Reported) Multivitamin Areds (Preservision Areds) 1 Tab Tab, 1 TAB PO BID, (Reported) Potassium Chloride (Potassium Chloride ER) 10 Meq Tab, 10 MEQ PO TID, (Reported) Ranitidine HCl (Ranitidine HCl) 150 Mg Tab, 1 TAB PO QHS, (Reported) Timolol Maleate (Timolol Maleate) 0.5 % Brielle, 1 DROP OD DAILY, (Reported) Torsemide (Torsemide) 20 Mg Tab, 20 MG PO BID, (Reported) TAKES AM/NOON Scheduled PRN (Azelastine HCl) 0.15 % Spr, 2 SPRAYS NA BID PRN for ALLERGIES, (Reported) Allergies Coded Allergies: Penicillins (Verified Allergy, Severe, HIVES/TONGUE SWELLS, 11/08/12) Penicillins Cross Reactors (Verified Allergy, Severe, HIVES/TONGUE SWELLS, 11/08/12) Guaifenesin (Verified Allergy, Mild, RASH, 10/15/17) Phenazopyridine (Verified Adverse Reaction, Intermediate, BACK PAIN/NAUSEA, 10/15/17) RELL DUENAS MD Sep 13, 2018 13:40
--- NOTE | 2018-09-13 20:06 | IPN ---
DATE: 09/13/2018 I saw Mr. Sam this morning on my rounds in intensive care unit (ICU). He had a relatively uneventful night. This morning he was denying any chest discomfort, shortness of breath or palpitations. His family was at bedside. PHYSICAL EXAMINATION: Elderly man, alert and oriented times three. Vital signs: Blood pressure 109/73, heart rate irregularly irregular with typical heart rate in 70s and 80s, afebrile. Saturation 97% on 2 liters of oxygen. Fluid balance overnight was approximately equal. Weight was documented 75.9. Jugular venous pressure (JVP) did not look high. Lungs are reasonably clear to auscultation with good air movement without any wheezing, crackles or rhonchi. Heart: Exam reveals irregularly irregular rhythm. I did not appreciate any gallop, rub or murmur. Abdomen is soft. No tenderness. No peripheral edema. Neurologically grossly intact. LABORATORY: CBC hemoglobin 15.7, hematocrit 47, platelet count 128,000, WBC count 7.0. Basic metabolic panel: Sodium 147, potassium 4.1, BUN 48, creatinine 2.3 for GFR 28, glucose 83. His troponin yesterday was 1.94, yesterday afternoon 2.0 and this morning 2.1. ASSESSMENT/PLAN: Mr. Sam is an 82-year-old man who has mild dementia, renal insufficiency and known cardiomyopathy with ejection fraction (EF) around 30- 35%. He presented with generalized malaise and not feeling well and was found to have elevated troponin and repolarization abnormalities on EKG together with evidence for old inferior wall myocardial infarction (ND). I had a long discussion with him yesterday morning and even longer discussion with him and his family this morning. I explained that he very likely has ischemic cardiomyopathy and under normal circumstances we would proceed with coronary angiography which may lead to ongoing medical management versus coronary intervention versus bypass surgery and potentially follow up pacemaker or implantable cardioverter defibrillator (ICD) placement. I explained that there are numerous risks involved that include possibility of renal failure, ending on dialysis, thrombotic complications, delirium, besides others. But yet, it is probably the only way we can reasonably extend his life expectancy. The patient and his family have expressed his desire to proceed with further cardiac evaluation and interventions. The patient did rescind his do not resuscitate (DNR), and he is well aware that this route involves a considerable amount of discomfort. I made arrangements to transfer the patient to [place], and he was transferred to interventional cardiology in [facility]. MISHA
== END 2018-09-13 11:32 | disposition short-term general hospital (02) | DRG 281 ==
LOC: M ED 11:06 → M ED INP 15:30 → M ICU 17:02
PROVIDERS: ADMIT Internal Medicine; ATTEND Internal Medicine
DX: I21.4 Non-ST elevation (NSTEMI) myocardial infarction (principal); I13.2 Hypertensive heart and chronic kidney disease with heart failure and with stage 5 chronic kidney disease, or end stage renal disease; I50.22 Chronic systolic (congestive) heart failure; N18.5 Chronic kidney disease, stage 5; I48.2 Chronic atrial fibrillation; E78.5 Hyperlipidemia, unspecified; F03.90 Unspecified dementia, unspecified severity, without behavioral disturbance, psychotic disturbance, mood disturbance, and anxiety; M54.9 Dorsalgia, unspecified; Z88.0 Allergy status to penicillin; Z79.01 Long term (current) use of anticoagulants; Z79.82 Long term (current) use of aspirin; Z79.899 Other long term (current) drug therapy; Z87.891 Personal history of nicotine dependence; Z90.49 Acquired absence of other specified parts of digestive tract; Z98.41 Cataract extraction status, right eye; Z98.42 Cataract extraction status, left eye; Z88.6 Allergy status to analgesic agent; Z88.8 Allergy status to other drugs, medicaments and biological substances

== ENCOUNTER → 2018-10-10 | Outpatient (CLI) | payer MEDICARE, BC ==
--- NOTE | 2018-10-10 16:48 | REP ---
Chest x-ray: Two views. History: CHF. Left pleural effusion. Comparison chest x-ray: September 12, 2018. Findings: There is blunting of the pleural angles bilaterally, left larger than right indicating bilateral effusions. Moderate cardiac enlargement is observed. The findings are essentially unchanged. Interstitial fibrosis pattern is seen in the right base. This is unchanged. No acute infiltrate is seen. Impression: Moderate cardiac enlargement. Bilateral pleural effusions, left greater than right. No significant change from September 12, 2018. Electronically Signed by Neeraj Malone MD 10/10/2018 04:53 P
== END ==
LOC: M WUC 15:22
PROVIDERS: ATTEND Internal Medicine
DX: I50.9 Heart failure, unspecified (principal); J90 Pleural effusion, not elsewhere classified

== ENCOUNTER → 2018-10-18 | Outpatient (REF) | payer MEDICARE, BC | LOC: M LAB REF 18:27 | PROVIDERS: ATTEND Nurse Practitioner Adult Health | DX: R71.8 Other abnormality of red blood cells (principal) ==

== ENCOUNTER → 2018-12-06 | Outpatient (REF) | payer MEDICARE, BC ==
[~2018-12-06] MED LIST changes: -/TAMS4CA PO
== END ==
LOC: M LAB REF 12:18
PROVIDERS: ATTEND Nurse Practitioner Adult Health
DX: R35.0 Frequency of micturition (principal)

== ENCOUNTER → 2018-12-15 | Outpatient (REF) | payer MEDICARE, BC | LOC: M LAB REF 12:53 | PROVIDERS: ATTEND Internal Medicine | DX: R30.0 Dysuria (principal) ==

== ENCOUNTER → 2019-03-19 | Outpatient (REF) | payer BC, MEDICARE, OTHER ==
[2019-03-19 15:53] LABS: APPEARANCE, URINE CLOUDY (CLEAR); BACTERIA, URINE AUTO 2+ (NEGATIVE); BILIRUBIN, URINE AUTO NEGATIVE (NEGATIVE); BLOOD, URINE BLOOD 2+ (NEGATIVE); COLOR, URINE YELLOW (YELLOW); GLUCOSE, URINE (UA) AUTO NEGATIVE (NEGATIVE); KETONE, URINE AUTO NEGATIVE (NEGATIVE); LEUKOCYTE ESTERASE, URINE AUTO 3+ (NEGATIVE); NITRITE, URINE AUTO NEGATIVE (NEGATIVE); PROTEIN, URINE AUTO NEGATIVE (NEGATIVE); RBC, URINE AUTO 28 /HPF (0-3); SPECIFIC GRAVITY URINE AUTO 1.008 (1.002-1.035); SQUAMOUS EPITHELIAL CELL UR AU 0 /HPF (0-6); UROBILINOGEN, URINE AUTO 0.2 mg/dL (0.0-2.0); WBC, URINE AUTO TNTC /HPF (0-3)
== END ==
LOC: M LAB REF 09:18
PROVIDERS: ATTEND Internal Medicine
DX: N39.0 Urinary tract infection, site not specified (principal)